=== PATIENT | male | born 1945 | race Two or more races ===

== ENCOUNTER 2016-04-19 19:04 | Inpatient (IN) | payer MEDICARE ==
[~2016-04-19] VITALS: Ht 170.2 cm; Wt 111.9 kg
[~2016-04-19 19:04] MED LIST: CHOL1TAB42 PO; DOCU100C8 PO; FURO40TA4 PO; LACT10SO PO; SPIR100T PO
[2016-04-19 20:09] LABS: Basophils # (auto) 0 uL; Basophils % (auto) 0.1 % (0.0-2.0); DEFINITIVE VIEW TRANSMISSION; Eosinophils # (auto) 0 uL; Eosinophils % (auto) 1.1 % (0.0-7.0); Hematocrit 25.3 % (41.0-53.0); Hemoglobin 8.3 g/dL (13.5-17.5); Lymphocytes # (auto) 0.3 uL; Lymphocytes % (auto) 7.1 % (10.0-50.0); Mean Corpuscular Hemoglobin 34.6 pg (28.0-32.0); Mean Corpuscular Hgb Conc. 32.7 g/dL (32.0-36.0); Mean Corpuscular Volume 105.7 fL (80.0-100.0); Mean Platelet Volume 8.1 fL (7.4-10.4); Monocytes # (auto) 0.4 uL; Monocytes % (auto) 10.1 % (0.0-12.0); Neutrophils # (auto) 3.3 uL; Neutrophils % (auto) 81.6 % (37.0-80.0); Platelet Count (auto) 50 10^3/uL (140-450)
[2016-04-19 20:19] LABS: Albumin 2.3 g/dL (3.4-5.0); BUN/Creatinine Ratio 28.5; Bilirubin, Total 1.4 mg/dL (0.2-1.0); Calcium 7.3 mg/dL (8.5-10.1); Magnesium 2.2 mg/dL (1.6-2.6); Potassium 5.1 mmol/L (3.5-5.1)
[2016-04-19 20:38] LABS: Red Cell Distribution Width 22.4 % (11.6-16.0)
[2016-04-19 21:03] LABS: Ovalocytes FEW; Platelet Estimate Decreased
[2016-04-19 21:04] LABS: Anisocytosis Moderate; Polychromasia Slight
[2016-04-19 21:05] LABS: Macrocytosis Moderate
[2016-04-19 21:39] LABS: B-Type Natriuretic Peptide 46.51 pg/mL (0-100)
[2016-04-20] MEDS ORDERED: FUROSEMIDE 40 MG/4 ML VIAL IV ONE (03:30)
[2016-04-20] MEDS ORDERED: MORPHINE SULF INJ 2 MG/ML SYRINGE 1ML IV PRN (03:30)
[2016-04-20] MEDS ORDERED: DOCUSATE SOD 100 MG CAP PO PRN (03:30)
[2016-04-20] MEDS ORDERED: ACETAMINOPHEN 325 MG TAB PO PRN (03:30)
[2016-04-20] MEDS ORDERED: ONDANSETRON HCL 4 MG/2 ML VIAL IV PRN (03:30)
[2016-04-20] MEDS ORDERED: TEMAZEPAM 15 MG CAP PO PRN (03:30)
[2016-04-20] MEDS ORDERED: NITROGLYCERIN 0.4 MG SL TAB SL PRN (03:30)
[2016-04-20 05:38] VITALS: BP 114/72
[2016-04-20 06:00] LABS: Urine Bilirubin Negative (Negative); Urine Blood Negative /uL (Negative); Urine Color Yellow (Yellow); Urine Glucose Normal (Normal); Urine Ketone Negative (Negative); Urine Nitrite Negative (Negative); Urine RBC <1 /hpf (0 - 3); Urine Squamous Epithelial Cell FEW /hpf (<5); Urine Urobilinogen Normal (Negative)
[2016-04-20 09:00] VITALS: BP 114/56
[2016-04-20] MEDS: FUROSEMIDE 40 MG TAB PO SCH (09:47)
[2016-04-20] MEDS: FAMOTIDINE 20 MG TAB PO SCH ×2 (09:47→21:22)
[2016-04-20] MEDS: LACTULOSE 20Gm/30ML SOLN PO SCH ×2 (09:47→21:22)
[2016-04-20] MEDS: SPIRONOLACTONE 25 MG TAB PO SCH (09:47)
[2016-04-20] MEDS ORDERED: ENOXAPARIN SOD 40 MG/0.4 ML SYRINGE SC SCH (10:00)
[2016-04-20] MEDS: cefTRIAXone 1GM/50ML D5W 50 ML IV SCH (12:54)
[2016-04-20 13:00] VITALS: BP 104/61
[2016-04-20 15:10] LABS: INR 1.21 (0.9-1.15); Prothrombin Time 12.5 sec (9.37-12.3)
[2016-04-20 17:00] VITALS: BP 111/59
[2016-04-20 21:44] VITALS: BP 127/72
[2016-04-21] VITALS (10 sets, daily range): BP systolic 99–113; BP diastolic 46–56
[2016-04-21 05:41] LABS: Basophils # (auto) 0 uL; Basophils % (auto) 0.2 % (0.0-2.0); DEFINITIVE VIEW TRANSMISSION; Eosinophils # (auto) 0.1 uL; Eosinophils % (auto) 2.4 % (0.0-7.0); Hematocrit 21.4 % (41.0-53.0); Lymphocytes # (auto) 0.5 uL; Lymphocytes % (auto) 20.1 % (10.0-50.0); Mean Corpuscular Hemoglobin 34.5 pg (28.0-32.0); Mean Corpuscular Hgb Conc. 32.8 g/dL (32.0-36.0); Mean Corpuscular Volume 105.1 fL (80.0-100.0); Monocytes # (auto) 0.4 uL; Monocytes % (auto) 14.2 % (0.0-12.0); Neutrophils # (auto) 1.6 uL; Neutrophils % (auto) 63.1 % (37.0-80.0); Platelet Count (auto) 48 10^3/uL (140-450); White Blood Cell 2.5 10^3/uL (4.4-10.8)
[2016-04-21 06:02] LABS: Potassium 4.7 mmol/L (3.5-5.1)
[2016-04-21 06:07] LABS: Albumin 1.9 g/dL (3.4-5.0); BUN/Creatinine Ratio 33.9; Calcium 7.1 mg/dL (8.5-10.1)
[2016-04-21 06:09] LABS: Total Protein 5.4 g/dL (6.4-8.2)
[2016-04-21 06:15] LABS: Red Cell Distribution Width 22.2 % (11.6-16.0)
[2016-04-21 06:56] LABS: Anisocytosis Moderate; Macrocytosis Slight; Platelet Estimate Decreased
[2016-04-21] MEDS: cefTRIAXone 1GM/50ML D5W 50 ML IV SCH (08:23)
[2016-04-21] MEDS ORDERED: NOREPINEPHRINE BITARTRATE 0 ML IV ONE (09:40)
[2016-04-21] MEDS: FUROSEMIDE 40 MG TAB PO SCH (10:00)
[2016-04-21] MEDS: SPIRONOLACTONE 25 MG TAB PO SCH (10:00)
[2016-04-21] MEDS: LACTULOSE 20Gm/30ML SOLN PO SCH ×2 (10:50→21:29)
[2016-04-21] MEDS: FAMOTIDINE 20 MG TAB PO SCH ×2 (10:50→21:29)
[2016-04-21 11:43] LABS: Hematocrit 19.8 % (41.0-53.0)
[2016-04-21 11:53] LABS: Hemoglobin 6.5 g/dL (13.5-17.5)
[2016-04-21] MEDS ORDERED: AZITHROMYCIN 500MG/D5W 250ML 250 ML IV SCH (13:30)
[2016-04-21 14:11] LABS: Temperature: 22.7 C (20.0-25.0)
[2016-04-21 14:27] LABS: Body Fluid Polymorphonuclear 37 %
[2016-04-22] VITALS (9 sets, daily range): BP systolic 93–112; BP diastolic 49–61
[2016-04-22] MEDS: LACTULOSE 20Gm/30ML SOLN PO SCH (09:40)
[2016-04-22] MEDS: FAMOTIDINE 20 MG TAB PO SCH (09:40)
[2016-04-22] MEDS: SPIRONOLACTONE 25 MG TAB PO SCH (09:41)
[2016-04-22] MEDS: FUROSEMIDE 40 MG TAB PO SCH (09:51)
[2016-04-22] MEDS ORDERED: diphenhdrAMINE HCL 25 MG CAP PO PRN (12:00)
[2016-04-22] MEDS ORDERED: PANTOPRAZOLE 40 MG TAB PO SCH (14:08)
[2016-04-22] MEDS ORDERED: OCTREOTIDE ACETATE 100 MCG in SODIUM CHL 0.9% 50 ML IV ONE (14:45)
[2016-04-22] MEDS ORDERED: LINEZOLID 600MG/300ML 300 ML IV SCH (15:00)
[2016-04-22 15:43] LABS: Basophils # (auto) 0 uL; Basophils % (auto) 0.6 % (0.0-2.0); DEFINITIVE VIEW TRANSMISSION; Eosinophils # (auto) 0.1 uL; Eosinophils % (auto) 4.4 % (0.0-7.0); Hematocrit 25.2 % (41.0-53.0); Hemoglobin 8.2 g/dL (13.5-17.5); Lymphocytes # (auto) 0.5 uL; Lymphocytes % (auto) 21.6 % (10.0-50.0); Mean Corpuscular Hemoglobin 32.1 pg (28.0-32.0); Mean Corpuscular Hgb Conc. 32.6 g/dL (32.0-36.0); Mean Corpuscular Volume 98.7 fL (80.0-100.0); Mean Platelet Volume 8.5 fL (7.4-10.4); Monocytes # (auto) 0.3 uL; Monocytes % (auto) 14.7 % (0.0-12.0); Neutrophils # (auto) 1.3 uL; Neutrophils % (auto) 58.7 % (37.0-80.0); Platelet Count (auto) 57 10^3/uL (140-450); SUSPECT VIEW TRANSMISSION; White Blood Cell 2.3 10^3/uL (4.4-10.8)
[2016-04-22 15:49] LABS: Red Cell Distribution Width 26.2 % (11.6-16.0)
[2016-04-22] MEDS: OCTREOTIDE ACETATE 500 MCG in SODIUM CHL 0.9% 99 ML IV SCH (15:53)
[2016-04-22 16:08] LABS: Platelet Estimate Decreased
[2016-04-22 16:09] LABS: Anisocytosis Moderate
[2016-04-22] MEDS: HYDROcodone-ACET 5/325MG TAB PO PRN (17:10)
[2016-04-22] MEDS ORDERED: DAPTOmycin 500 MG in SODIUM CHL 0.9% 50 ML IV SCH (18:00)
[2016-04-22] MEDS: PANTOPRAZOLE 40 MG TAB PO SCH (21:54)
[2016-04-23] VITALS (7 sets, daily range): BP systolic 91–119; BP diastolic 49–66
[2016-04-23] MEDS: OCTREOTIDE ACETATE 500 MCG in SODIUM CHL 0.9% 99 ML IV SCH (00:40)
[2016-04-23] MEDS ORDERED: fentaNYL CITRATE 100 MCG/2 ML VL ONE (08:25)
[2016-04-23] MEDS ORDERED: MIDAZOLAM HCL 5 MG/ML-1ML VIAL ONE (08:25)
[2016-04-23] MEDS ORDERED: SODIUM CHLORIDE LOCK 10 ML ONE (08:25)
[2016-04-23] MEDS ORDERED: LIDOCAINE VISCOUS 2% 15ML UD ONE (08:25)
[2016-04-23] MEDS ORDERED: diphenhdrAMINE HCL 50 MG/1 ML VL ONE (08:26)
[2016-04-23] MEDS ORDERED: DAPTOmycin 0 MG in SODIUM CHL 0.9% 50 ML IV SCH (10:00)
[2016-04-23] MEDS: LACTULOSE 20Gm/30ML SOLN PO SCH (10:00)
[2016-04-23] MEDS: SPIRONOLACTONE 25 MG TAB PO SCH (10:00)
[2016-04-23] MEDS: FUROSEMIDE 40 MG TAB PO SCH (10:00)
[2016-04-23] MEDS: PANTOPRAZOLE 40 MG TAB PO SCH ×2 (10:00→21:35)
[2016-04-23] MEDS: CEFTRIAXONE SODIUM 2 GM in D5W 5% 50 ML IV SCH (14:00)
[2016-04-24 05:00] VITALS: BP 98/42
[2016-04-24 06:03] LABS: Basophils # (auto) 0 uL; Basophils % (auto) 0.2 % (0.0-2.0); DEFINITIVE VIEW TRANSMISSION; Eosinophils # (auto) 0.1 uL; Eosinophils % (auto) 3.7 % (0.0-7.0); Hematocrit 23.9 % (41.0-53.0); Hemoglobin 7.8 g/dL (13.5-17.5); Lymphocytes # (auto) 0.5 uL; Lymphocytes % (auto) 23.8 % (10.0-50.0); Mean Corpuscular Hemoglobin 32.4 pg (28.0-32.0); Mean Corpuscular Hgb Conc. 32.7 g/dL (32.0-36.0); Mean Corpuscular Volume 99.2 fL (80.0-100.0); Mean Platelet Volume 7.9 fL (7.4-10.4); Monocytes # (auto) 0.2 uL; Monocytes % (auto) 12.3 % (0.0-12.0); Neutrophils # (auto) 1.1 uL; Platelet Count (auto) 59 10^3/uL (140-450); SUSPECT VIEW TRANSMISSION
[2016-04-24 06:05] LABS: Red Cell Distribution Width 25.6 % (11.6-16.0)
[2016-04-24 06:07] LABS: White Blood Cell 1.9 10^3/uL (4.4-10.8)
[2016-04-24 06:50] LABS: Anisocytosis Slight; Platelet Estimate Decreased
[2016-04-24 08:13] VITALS: BP 117/70
[2016-04-24] MEDS: SPIRONOLACTONE 25 MG TAB PO SCH (10:00)
[2016-04-24] MEDS: CEFTRIAXONE SODIUM 2 GM in D5W 5% 50 ML IV SCH (10:00)
[2016-04-24] MEDS: FUROSEMIDE 40 MG TAB PO SCH (10:00)
[2016-04-24] MEDS: LACTULOSE 20Gm/30ML SOLN PO SCH (10:18)
[2016-04-24] MEDS: PANTOPRAZOLE 40 MG TAB PO SCH ×2 (10:19→22:46)
[2016-04-24 13:10] VITALS: BP 101/58
[2016-04-24 16:24] VITALS: BP 104/49
[2016-04-24] MEDS: METOCLOPRAMIDE HCL 10 MG TAB PO SCH ×2 (17:26→22:46)
[2016-04-24 22:00] VITALS: BP 100/48
[2016-04-25 05:51] VITALS: BP 100/53
[2016-04-25 06:08] LABS: Basophils # (auto) 0 uL; Basophils % (auto) 0.2 % (0.0-2.0); DEFINITIVE VIEW TRANSMISSION; Eosinophils # (auto) 0.1 uL; Eosinophils % (auto) 3.8 % (0.0-7.0); Hematocrit 24.7 % (41.0-53.0); Hemoglobin 8.1 g/dL (13.5-17.5); Lymphocytes # (auto) 0.5 uL; Lymphocytes % (auto) 28.3 % (10.0-50.0); Mean Corpuscular Hemoglobin 32.4 pg (28.0-32.0); Mean Corpuscular Hgb Conc. 32.7 g/dL (32.0-36.0); Mean Platelet Volume 7.8 fL (7.4-10.4); Monocytes # (auto) 0.2 uL; Neutrophils # (auto) 0.9 uL; Neutrophils % (auto) 54.7 % (37.0-80.0); Platelet Count (auto) 57 10^3/uL (140-450); SUSPECT VIEW TRANSMISSION
[2016-04-25 06:21] LABS: Red Cell Distribution Width 24.7 % (11.6-16.0)
[2016-04-25 06:33] LABS: White Blood Cell 1.7 10^3/uL (4.4-10.8)
[2016-04-25] MEDS: METOCLOPRAMIDE HCL 10 MG TAB PO SCH ×4 (06:46→21:26)
[2016-04-25 07:44] LABS: Anisocytosis Slight; Platelet Estimate Decreased
[2016-04-25 07:45] LABS: Poikilocytosis 1
[2016-04-25 09:00] VITALS: BP 117/59
[2016-04-25] MEDS: LACTULOSE 20Gm/30ML SOLN PO SCH (10:02)
[2016-04-25] MEDS: PANTOPRAZOLE 40 MG TAB PO SCH ×2 (10:03→21:26)
[2016-04-25] MEDS: FUROSEMIDE 40 MG TAB PO SCH (10:03)
[2016-04-25] MEDS: SPIRONOLACTONE 25 MG TAB PO SCH (10:03)
[2016-04-25] MEDS: CEFTRIAXONE SODIUM 2 GM in D5W 5% 50 ML IV SCH (10:32)
[2016-04-25 13:00] VITALS: BP 107/63
[2016-04-25 14:04] LABS: INR 1.34 (0.9-1.15); Partial Thromboplastin Time 33.9 sec (22.64-33.71); Prothrombin Time 13.8 sec (9.37-12.3)
[2016-04-25 17:00] VITALS: BP 100/54
[2016-04-25 22:00] VITALS: BP 106/60
[2016-04-26 05:28] VITALS: BP 109/71
[2016-04-26] MEDS: METOCLOPRAMIDE HCL 10 MG TAB PO SCH ×4 (06:07→21:36)
[2016-04-26] MEDS: SPIRONOLACTONE 25 MG TAB PO SCH (08:48)
[2016-04-26] MEDS: LACTULOSE 20Gm/30ML SOLN PO SCH (08:48)
[2016-04-26] MEDS: CEFTRIAXONE SODIUM 2 GM in D5W 5% 50 ML IV SCH (08:51)
[2016-04-26] MEDS: FUROSEMIDE 40 MG TAB PO SCH (08:51)
[2016-04-26] MEDS: PANTOPRAZOLE 40 MG TAB PO SCH ×2 (08:51→21:36)
[2016-04-26 09:00] VITALS: BP 101/61
[2016-04-26] MEDS: HYDROcodone-ACET 5/325MG TAB PO PRN ×2 (11:12→21:35)
[2016-04-26 13:00] VITALS: BP 104/59
[2016-04-26 17:00] VITALS: BP 99/54
[2016-04-26 22:00] VITALS: BP 101/54
[2016-04-27] MEDS: HYDROcodone-ACET 5/325MG TAB PO PRN (05:11)
[2016-04-27 05:33] VITALS: BP 104/54
[2016-04-27] MEDS: METOCLOPRAMIDE HCL 10 MG TAB PO SCH ×4 (06:14→21:45)
[2016-04-27 09:00] VITALS: BP 136/54
[2016-04-27] MEDS: SPIRONOLACTONE 25 MG TAB PO SCH (10:00)
[2016-04-27] MEDS: CEFTRIAXONE SODIUM 2 GM in D5W 5% 50 ML IV SCH (10:18)
[2016-04-27] MEDS: LACTULOSE 20Gm/30ML SOLN PO SCH (10:18)
[2016-04-27] MEDS: PANTOPRAZOLE 40 MG TAB PO SCH ×2 (10:18→21:45)
[2016-04-27] MEDS: FUROSEMIDE 40 MG TAB PO SCH (10:18)
[2016-04-27 13:00] VITALS: BP 93/44
[2016-04-27 17:00] VITALS: BP 98/54
[2016-04-27 22:00] VITALS: BP 101/45
[2016-04-28] MEDS: HYDROcodone-ACET 5/325MG TAB PO PRN ×2 (04:11→19:25)
[2016-04-28 05:00] VITALS: BP 108/50
[2016-04-28] MEDS: METOCLOPRAMIDE HCL 10 MG TAB PO SCH ×4 (06:35→22:22)
[2016-04-28 08:49] VITALS: BP 103/56
[2016-04-28] MEDS: PANTOPRAZOLE 40 MG TAB PO SCH ×2 (09:43→22:22)
[2016-04-28] MEDS: CEFTRIAXONE SODIUM 2 GM in D5W 5% 50 ML IV SCH (09:43)
[2016-04-28] MEDS: LACTULOSE 20Gm/30ML SOLN PO SCH (09:48)
[2016-04-28] MEDS: SPIRONOLACTONE 25 MG TAB PO SCH (09:49)
[2016-04-28] MEDS: FUROSEMIDE 40 MG TAB PO SCH (09:49)
[2016-04-28 11:00] VITALS: BP 104/51
[2016-04-28 15:11] LABS: Basophils # (auto) 0 uL; Basophils % (auto) 0.4 % (0.0-2.0); DEFINITIVE VIEW TRANSMISSION; Eosinophils # (auto) 0.1 uL; Eosinophils % (auto) 3.4 % (0.0-7.0); Hematocrit 25.3 % (41.0-53.0); Hemoglobin 8.2 g/dL (13.5-17.5); Lymphocytes # (auto) 0.4 uL; Lymphocytes % (auto) 20.3 % (10.0-50.0); Mean Corpuscular Hemoglobin 32.2 pg (28.0-32.0); Mean Corpuscular Hgb Conc. 32.5 g/dL (32.0-36.0); Mean Platelet Volume 7.8 fL (7.4-10.4); Monocytes # (auto) 0.2 uL; Monocytes % (auto) 9.8 % (0.0-12.0); Neutrophils # (auto) 1.3 uL; Neutrophils % (auto) 66.1 % (37.0-80.0); Platelet Count (auto) 48 10^3/uL (140-450); SUSPECT VIEW TRANSMISSION
[2016-04-28 15:47] LABS: Red Cell Distribution Width 23.3 % (11.6-16.0)
[2016-04-28 16:33] LABS: Anisocytosis Slight; Platelet Estimate Decreased
[2016-04-28 16:39] VITALS: BP 92/47
[2016-04-28 22:00] VITALS: BP 95/55
[2016-04-29 05:00] VITALS: BP 94/40
[2016-04-29] MEDS: METOCLOPRAMIDE HCL 10 MG TAB PO SCH ×4 (06:20→21:59)
[2016-04-29] MEDS: HYDROcodone-ACET 5/325MG TAB PO PRN ×3 (06:34→20:47)
[2016-04-29 08:25] VITALS: BP 100/54
[2016-04-29] MEDS: CEFTRIAXONE SODIUM 2 GM in D5W 5% 50 ML IV SCH (09:31)
[2016-04-29] MEDS: PANTOPRAZOLE 40 MG TAB PO SCH ×2 (09:31→21:59)
[2016-04-29] MEDS: LACTULOSE 20Gm/30ML SOLN PO SCH (09:31)
[2016-04-29] MEDS: FUROSEMIDE 40 MG TAB PO SCH (09:32)
[2016-04-29] MEDS: SPIRONOLACTONE 25 MG TAB PO SCH (09:33)
[2016-04-29 14:01] VITALS: BP 93/46
[2016-04-29 17:13] VITALS: BP 94/49
[2016-04-29 22:00] VITALS: BP 92/52
[2016-04-30 05:00] VITALS: BP 91/54
[2016-04-30 05:55] LABS: Calcium 7.3 mg/dL (8.5-10.1); Potassium 4.4 mmol/L (3.5-5.1)
[2016-04-30 05:58] LABS: BUN/Creatinine Ratio 17.5
[2016-04-30] MEDS: HYDROcodone-ACET 5/325MG TAB PO PRN ×2 (05:59→14:30)
[2016-04-30] MEDS: METOCLOPRAMIDE HCL 10 MG TAB PO SCH ×3 (06:30→17:42)
[2016-04-30 07:57] VITALS: BP 90/49
[2016-04-30] MEDS: SPIRONOLACTONE 25 MG TAB PO SCH (08:04)
[2016-04-30] MEDS: CEFTRIAXONE SODIUM 2 GM in D5W 5% 50 ML IV SCH (09:48)
[2016-04-30] MEDS: LACTULOSE 20Gm/30ML SOLN PO SCH (09:48)
[2016-04-30] MEDS: PANTOPRAZOLE 40 MG TAB PO SCH (09:49)
[2016-04-30] MEDS: FUROSEMIDE 40 MG TAB PO SCH (09:49)
[2016-04-30] MEDS ORDERED: MORPHINE SULF INJ 2 MG/ML SYRINGE 1ML IV ONE (14:45)
[2016-04-30 17:20] VITALS: BP 90/50
[2016-04-30 17:23] VITALS: BP 90/49
== END 2016-04-30 18:10 | disposition home or self-care (01) | DRG 441 ==
LOC: ER 19:08 → TELE 19:09 → TELE-WESTW 04-20 04:30 → DOU IN ICU 04-21 13:29 → TELE-WESTW 04-21 14:02
PROVIDERS: ADMIT Nurse Practitioner; ATTEND Internal Medicine Pulmonary Disease
PROC: 30233R1 Transfusion of Nonautologous Platelets into Peripheral Vein, Percutaneous Approach (ICD-10-PCS; 2016-04-23)
PROC: 30233N1 Transfusion of Nonautologous Red Blood Cells into Peripheral Vein, Percutaneous Approach (ICD-10-PCS; 2016-04-23)
PROC: 0W9930Z Drainage of Right Pleural Cavity with Drainage Device, Percutaneous Approach (ICD-10-PCS; 2016-04-23)
PROC: 0DJ08ZZ Inspection of Upper Intestinal Tract, Via Natural or Artificial Opening Endoscopic (ICD-10-PCS; principal; 2016-04-23 10:40)
DX: K76.6 Portal hypertension (principal); J86.9 Pyothorax without fistula; E43 Unspecified severe protein-calorie malnutrition; J90 Pleural effusion, not elsewhere classified; E87.1 Hypo-osmolality and hyponatremia; K70.31 Alcoholic cirrhosis of liver with ascites; D63.8 Anemia in other chronic diseases classified elsewhere; F17.210 Nicotine dependence, cigarettes, uncomplicated; K29.70 Gastritis, unspecified, without bleeding; K31.89 Other diseases of stomach and duodenum; B95.4 Other streptococcus as the cause of diseases classified elsewhere; Z98.890 Other specified postprocedural states; Z87.19 Personal history of other diseases of the digestive system; Z68.38 Body mass index [BMI] 38.0-38.9, adult
CPT/HCPCS: 36415; 71010; 71020; 74022; 76604; 76942; 80048; 80053; 81001; 82140; 82270; 82607; 82746; 82945; 83605; 83615; 83735; 83880; 83986; 84157; 84484; 85014; 85018; 85025; 85610; 85730; 86850; 86900; 86901; 86920; 87040; 87070; 87077; 87081; 87186; 87205; 88341; 89051; 93005; 94761; 96374; J0696; J2250; J3490; J7060

== ENCOUNTER 2016-05-01 00:57 | Emergency (ER) | payer MEDICARE ==
[~2016-05-01] VITALS: Ht 172.7 cm; Wt 81.6 kg
[2016-05-01] MEDS ORDERED: IOHEXOL 350 MG/ML 100ML IJ ONE ×2 (01:16→01:30)
[2016-05-01 02:34] LABS: Basophils # (auto) 0 uL; DEFINITIVE VIEW TRANSMISSION; Eosinophils # (auto) 0 uL; Eosinophils % (auto) 0.8 % (0.0-7.0); Hematocrit 24.3 % (41.0-53.0); Lymphocytes # (auto) 0.2 uL; Lymphocytes % (auto) 10.1 % (10.0-50.0); Mean Corpuscular Hemoglobin 31.9 pg (28.0-32.0); Mean Corpuscular Hgb Conc. 32.6 g/dL (32.0-36.0); Mean Corpuscular Volume 97.8 fL (80.0-100.0); Mean Platelet Volume 8.3 fL (7.4-10.4); Monocytes # (auto) 0.2 uL; Monocytes % (auto) 7.9 % (0.0-12.0); Neutrophils # (auto) 1.6 uL; Neutrophils % (auto) 81.2 % (37.0-80.0); Platelet Count (auto) 40 10^3/uL (140-450)
[2016-05-01 02:39] LABS: Red Cell Distribution Width 22.3 % (11.6-16.0)
[2016-05-01 02:43] LABS: Albumin 1.8 g/dL (3.4-5.0); BUN/Creatinine Ratio 16.3; Calcium 7.1 mg/dL (8.5-10.1); Potassium 3.9 mmol/L (3.5-5.1)
[2016-05-01 02:45] LABS: Bilirubin, Total 1.6 mg/dL (0.2-1.0); Total Protein 5.4 g/dL (6.4-8.2)
[2016-05-01 02:56] LABS: Ovalocytes FEW; Platelet Estimate Decreased
[2016-05-01 02:57] LABS: Anisocytosis Slight
[2016-05-01] MEDS ORDERED: LIDOCAINE VISCOUS 2% 15ML UD PO ONE (03:15)
[2016-05-01] MEDS ORDERED: traMADol HCL 50 MG TAB PO ONE (03:15)
[2016-05-01] MEDS ORDERED: FAMOTIDINE 20 MG TAB PO ONE (03:15)
[2016-05-01] MEDS ORDERED: ALUM & MAG HYDROX-SIMETH LIQ(MAALOX) 30 ML PO ONE (03:15)
[2016-05-01 04:23] VITALS: BP 93/43
== END 2016-05-01 05:41 | disposition home or self-care (01) ==
LOC: ER 01:21
DX: K29.70 Gastritis, unspecified, without bleeding (principal); K74.60 Unspecified cirrhosis of liver; F17.210 Nicotine dependence, cigarettes, uncomplicated; Z79.899 Other long term (current) drug therapy
CPT/HCPCS: 36415; 74177; 80053; 83690; 83735; 84484; 85025; 93005; 99285; Q9967

== ENCOUNTER 2016-05-06 10:14 | Inpatient (IN) | payer MEDICARE ==
[~2016-05-06] VITALS: Ht 172.7 cm; Wt 121.9 kg
[2016-05-06 10:48] LABS: Basophils # (auto) 0 uL; Basophils % (auto) 0.2 % (0.0-2.0); DEFINITIVE VIEW TRANSMISSION; Eosinophils # (auto) 0.1 uL; Eosinophils % (auto) 3.4 % (0.0-7.0); Hematocrit 24.4 % (41.0-53.0); Hemoglobin 7.9 g/dL (13.5-17.5); Lymphocytes # (auto) 0.5 uL; Lymphocytes % (auto) 13.9 % (10.0-50.0); Mean Corpuscular Hgb Conc. 32.4 g/dL (32.0-36.0); Mean Corpuscular Volume 95.5 fL (80.0-100.0); Mean Platelet Volume 7.9 fL (7.4-10.4); Monocytes # (auto) 0.4 uL; Monocytes % (auto) 10.9 % (0.0-12.0); Neutrophils # (auto) 2.3 uL; Neutrophils % (auto) 71.6 % (37.0-80.0); Platelet Count (auto) 117 10^3/uL (140-450); White Blood Cell 3.3 10^3/uL (4.4-10.8)
[2016-05-06 11:07] LABS: BUN/Creatinine Ratio 24.3; Bilirubin, Total 7.1 mg/dL (0.2-1.0); Calcium 7.6 mg/dL (8.5-10.1); Potassium 4.3 mmol/L (3.5-5.1); Total Protein 5.8 g/dL (6.4-8.2)
[2016-05-06 11:44] LABS: Anisocytosis Slight; Hypochromia Slight
[2016-05-06] MEDS ORDERED: NITROGLYCERIN 0.4 MG SL TAB SL PRN (11:45)
[2016-05-06] MEDS ORDERED: LORazepam 0.5 MG TAB PO PRN (11:45)
[2016-05-06] MEDS ORDERED: PANTOPRAZOLE SODIUM 40 MG/10 ML VIAL IV ONE (11:45)
[2016-05-06] MEDS ORDERED: MORPHINE SULF INJ 2 MG/ML SYRINGE 1ML IV PRN ×2 (11:45)
[2016-05-06] MEDS ORDERED: PROMETHAZINE HCL 25 MG/ML 1ML IV PRN (11:45)
[2016-05-06 12:00] LABS: Platelet Estimate Decreased
[2016-05-06 12:10] LABS: INR 1.18 (0.9-1.15); Partial Thromboplastin Time 27.5 sec (22.64-33.71); Prothrombin Time 12.2 sec (9.37-12.3)
[2016-05-06 12:22] LABS: B-Type Natriuretic Peptide 45.01 pg/mL (0-100)
[2016-05-06 12:51] LABS: Temperature: 22.5 C (20.0-25.0)
[2016-05-06 12:52] LABS: Hematocrit 23.8 % (41.0-53.0); Hemoglobin 7.8 g/dL (13.5-17.5)
[2016-05-06] MEDS ORDERED: GOLYTELY 4L KIT PO ONE (13:45)
[2016-05-06] MEDS ORDERED: SODIUM CHLORIDE 0.9% 500 ML IV ONE (15:15)
[2016-05-06 15:50] VITALS: BP 104/66
[2016-05-06 16:00] VITALS: BP 119/69
[2016-05-06] MEDS ORDERED: DICY20TA66 PO (16:16)
[2016-05-06] MEDS ORDERED: FAM20T PO (16:16)
[2016-05-06 18:17] LABS: Hematocrit 24.4 % (41.0-53.0); Hemoglobin 7.9 g/dL (13.5-17.5)
[2016-05-06 19:57] VITALS: BP 112/65
[2016-05-06 21:07] LABS: Urine Blood Negative /uL (Negative); Urine Color Yellow (Yellow); Urine Glucose Normal (Normal); Urine Granular Cast FEW /lpf (0); Urine Hyaline Cast FEW /lpf (0 - 2); Urine Ketone Negative (Negative); Urine Nitrite Negative (Negative); Urine RBC 1 /hpf (0 - 3); Urine Squamous Epithelial Cell FEW /hpf (<5); Urine Urobilinogen Normal (Negative)
[2016-05-06 21:23] LABS: Urine Bilirubin 2+ (Negative)
[2016-05-06] MEDS: D5W/SOD CHL 0.45% 1,000 ML IV SCH (23:30)
[2016-05-06 23:55] VITALS: BP 96/54
[2016-05-07 01:20] LABS: Hematocrit 23.3 % (41.0-53.0); Hemoglobin 7.5 g/dL (13.5-17.5)
[2016-05-07 04:00] VITALS: BP 117/59
[2016-05-07 06:06] LABS: Basophils # (auto) 0 uL; Basophils % (auto) 0.4 % (0.0-2.0); DEFINITIVE VIEW TRANSMISSION; Eosinophils # (auto) 0.1 uL; Eosinophils % (auto) 2.9 % (0.0-7.0); Hematocrit 22.6 % (41.0-53.0); Hemoglobin 7.3 g/dL (13.5-17.5); Lymphocytes # (auto) 0.5 uL; Lymphocytes % (auto) 16.8 % (10.0-50.0); Mean Corpuscular Hemoglobin 30.7 pg (28.0-32.0); Mean Corpuscular Hgb Conc. 32.3 g/dL (32.0-36.0); Mean Corpuscular Volume 95.2 fL (80.0-100.0); Mean Platelet Volume 8.2 fL (7.4-10.4); Monocytes # (auto) 0.4 uL; Monocytes % (auto) 14.3 % (0.0-12.0); Neutrophils # (auto) 1.9 uL; Neutrophils % (auto) 65.6 % (37.0-80.0); Platelet Count (auto) 100 10^3/uL (140-450)
[2016-05-07 06:19] LABS: Albumin 1.8 g/dL (3.4-5.0); Calcium 7.2 mg/dL (8.5-10.1); Potassium 4.1 mmol/L (3.5-5.1)
[2016-05-07 06:21] LABS: Bilirubin, Total 7.1 mg/dL (0.2-1.0); Total Protein 5.5 g/dL (6.4-8.2)
[2016-05-07 06:29] LABS: Red Cell Distribution Width 22.9 % (11.6-16.0)
[2016-05-07 07:22] LABS: Anisocytosis Slight; Hypochromia Moderate; Platelet Estimate Decreased
[2016-05-07 08:00] VITALS: BP 100/59
[2016-05-07] MEDS ORDERED: NALOXONE HCL 0.4 MG/ML VIAL ONE (08:00)
[2016-05-07] MEDS ORDERED: SODIUM CHLORIDE LOCK 10 ML ONE (08:00)
[2016-05-07] MEDS ORDERED: FLUMAZENIL 0.1 MG/ML INJ 10ML MDV IV ONE (08:00)
[2016-05-07] MEDS ORDERED: diphenhdrAMINE HCL 50 MG/1 ML VL ONE (08:01)
[2016-05-07] MEDS: MIDAZOLAM HCL 5 MG/ML-1ML VIAL ONE ×2 (08:47→08:53)
[2016-05-07] MEDS: fentaNYL CITRATE 100 MCG/2 ML VL ONE ×2 (08:47→08:53)
[2016-05-07] MEDS: PANTOPRAZOLE 40 MG TAB PO SCH ×6 (10:11→10:22)
[2016-05-07 12:00] VITALS: BP 99/53
[2016-05-07] MEDS: D5W/SOD CHL 0.45% 1,000 ML IV SCH (13:20)
[2016-05-07 16:00] VITALS: BP 96/48
[2016-05-07] MEDS ORDERED: SPIRONOLACTONE 25 MG TAB PO ONE (16:45)
[2016-05-07] MEDS ORDERED: FUROSEMIDE 20 MG TAB PO ONE (16:45)
[2016-05-07 20:19] VITALS: BP 103/51
[2016-05-08] VITALS (10 sets, daily range): BP systolic 79–102; BP diastolic 5–52
[2016-05-08] MEDS: D5W/SOD CHL 0.45% 1,000 ML IV SCH ×2 (02:29→10:00)
[2016-05-08] MEDS: SPIRONOLACTONE 25 MG TAB PO SCH (09:59)
[2016-05-08] MEDS: FUROSEMIDE 20 MG TAB PO SCH (09:59)
[2016-05-08] MEDS: PANTOPRAZOLE 40 MG TAB PO SCH (10:00)
[2016-05-08] MEDS ORDERED: diphenhdrAMINE HCL 25 MG CAP PO PRN (10:45)
[2016-05-09] VITALS (12 sets, daily range): BP systolic 74–104; BP diastolic 36–62
[2016-05-09] MEDS ORDERED: SODIUM CHLORIDE 0.9% 1,000 ML IV ONE (00:15)
[2016-05-09 05:46] LABS: Basophils # (auto) 0 uL; Basophils % (auto) 0.3 % (0.0-2.0); DEFINITIVE VIEW TRANSMISSION; Eosinophils # (auto) 0.1 uL; Eosinophils % (auto) 2.7 % (0.0-7.0); Hematocrit 20.6 % (41.0-53.0); Lymphocytes # (auto) 0.5 uL; Lymphocytes % (auto) 18.6 % (10.0-50.0); Mean Corpuscular Hemoglobin 31.1 pg (28.0-32.0); Mean Corpuscular Hgb Conc. 32.8 g/dL (32.0-36.0); Mean Platelet Volume 7.8 fL (7.4-10.4); Monocytes # (auto) 0.4 uL; Monocytes % (auto) 14.9 % (0.0-12.0); Neutrophils # (auto) 1.6 uL; Neutrophils % (auto) 63.5 % (37.0-80.0); Platelet Count (auto) 87 10^3/uL (140-450); White Blood Cell 2.6 10^3/uL (4.4-10.8)
[2016-05-09 06:01] LABS: Calcium 7.3 mg/dL (8.5-10.1); Hemoglobin 6.8 g/dL (13.5-17.5); Red Cell Distribution Width 23.8 % (11.6-16.0)
[2016-05-09 06:05] LABS: BUN/Creatinine Ratio 24.6
[2016-05-09 07:24] LABS: Platelet Estimate Decreased
[2016-05-09 07:25] LABS: Anisocytosis Slight; Hypochromia Slight; Ovalocytes FEW
[2016-05-09] MEDS: FUROSEMIDE 20 MG TAB PO SCH (10:00)
[2016-05-09] MEDS: SPIRONOLACTONE 25 MG TAB PO SCH (10:50)
[2016-05-09] MEDS: PANTOPRAZOLE 40 MG TAB PO SCH (10:50)
[2016-05-10] MEDS: TEMAZEPAM 15 MG CAP PO PRN (00:18)
[2016-05-10 05:00] VITALS: BP 96/58
[2016-05-10 05:16] LABS: Basophils # (auto) 0 uL; Basophils % (auto) 0.3 % (0.0-2.0); DEFINITIVE VIEW TRANSMISSION; Eosinophils # (auto) 0.1 uL; Eosinophils % (auto) 3.4 % (0.0-7.0); Hematocrit 28.2 % (41.0-53.0); Hemoglobin 9.4 g/dL (13.5-17.5); Lymphocytes # (auto) 0.9 uL; Lymphocytes % (auto) 21.6 % (10.0-50.0); Mean Corpuscular Hemoglobin 30.6 pg (28.0-32.0); Mean Corpuscular Hgb Conc. 33.2 g/dL (32.0-36.0); Mean Corpuscular Volume 92.4 fL (80.0-100.0); Mean Platelet Volume 7.9 fL (7.4-10.4); Monocytes # (auto) 0.5 uL; Monocytes % (auto) 12.3 % (0.0-12.0); Neutrophils # (auto) 2.5 uL; Neutrophils % (auto) 62.4 % (37.0-80.0); Platelet Count (auto) 122 10^3/uL (140-450)
[2016-05-10 05:42] LABS: Albumin 1.8 g/dL (3.4-5.0); BUN/Creatinine Ratio 25.7; Bilirubin, Total 11.2 mg/dL (0.2-1.0); Calcium 7.9 mg/dL (8.5-10.1); Potassium 4.9 mmol/L (3.5-5.1); Total Protein 5.7 g/dL (6.4-8.2)
[2016-05-10 05:53] LABS: Red Cell Distribution Width 21.3 % (11.6-16.0)
[2016-05-10 07:56] LABS: Platelet Estimate Decreased
[2016-05-10 07:58] LABS: Anisocytosis Slight; Hypochromia Slight
[2016-05-10 08:00] VITALS: BP 100/65
[2016-05-10] MEDS: FUROSEMIDE 20 MG TAB PO SCH (10:00)
[2016-05-10] MEDS: SPIRONOLACTONE 25 MG TAB PO SCH (10:18)
[2016-05-10] MEDS: PANTOPRAZOLE 40 MG TAB PO SCH (10:19)
[2016-05-10 12:00] VITALS: BP 94/48
[2016-05-10 16:00] VITALS: BP 96/57
[2016-05-10 21:30] VITALS: BP 83/46
[2016-05-10 23:45] VITALS: BP 100/50
[2016-05-11 05:00] VITALS: BP 93/45
[2016-05-11 08:38] VITALS: BP 91/45
[2016-05-11] MEDS: FUROSEMIDE 20 MG TAB PO SCH (10:00)
[2016-05-11] MEDS: SPIRONOLACTONE 25 MG TAB PO SCH (10:00)
[2016-05-11] MEDS ORDERED: fentaNYL CITRATE 100 MCG/2 ML VL ONE (11:14)
[2016-05-11] MEDS ORDERED: LIDOCAINE VISCOUS 2% 15ML UD ONE (11:14)
[2016-05-11] MEDS ORDERED: diphenhdrAMINE HCL 50 MG/1 ML VL ONE (11:14)
[2016-05-11] MEDS ORDERED: MIDAZOLAM HCL 5 MG/ML-1ML VIAL ONE (11:14)
[2016-05-11] MEDS ORDERED: SODIUM CHLORIDE LOCK 10 ML ONE (11:14)
[2016-05-11] MEDS ORDERED: NALOXONE HCL 0.4 MG/ML VIAL ONE (11:15)
[2016-05-11] MEDS ORDERED: FLUMAZENIL 0.1 MG/ML INJ 10ML MDV IV ONE (11:15)
[2016-05-11 13:01] VITALS: BP 91/43
[2016-05-11 17:06] VITALS: BP 94/42
[2016-05-11] MEDS: PANTOPRAZOLE 40 MG TAB PO SCH (21:02)
[2016-05-11] MEDS: TEMAZEPAM 15 MG CAP PO PRN (21:02)
[2016-05-11 22:00] VITALS: BP 86/41
[2016-05-12 05:30] VITALS: BP 100/44
[2016-05-12 06:47] LABS: BUN/Creatinine Ratio 22.5; Calcium 7.6 mg/dL (8.5-10.1); Potassium 5.2 mmol/L (3.5-5.1)
[2016-05-12 08:21] LABS: Basophils # (auto) 0 uL; Basophils % (auto) 0.2 % (0.0-2.0); DEFINITIVE VIEW TRANSMISSION; Eosinophils # (auto) 0.1 uL; Eosinophils % (auto) 3.2 % (0.0-7.0); Hematocrit 27.7 % (41.0-53.0); Hemoglobin 9.1 g/dL (13.5-17.5); Lymphocytes # (auto) 0.6 uL; Lymphocytes % (auto) 14.4 % (10.0-50.0); Mean Corpuscular Hemoglobin 30.9 pg (28.0-32.0); Mean Corpuscular Hgb Conc. 33.1 g/dL (32.0-36.0); Mean Corpuscular Volume 93.5 fL (80.0-100.0); Mean Platelet Volume 8.6 fL (7.4-10.4); Monocytes # (auto) 0.5 uL; Monocytes % (auto) 11.4 % (0.0-12.0); Neutrophils # (auto) 3.1 uL; Neutrophils % (auto) 70.8 % (37.0-80.0); Platelet Count (auto) 111 10^3/uL (140-450); Red Cell Distribution Width 21.3 % (11.6-16.0); White Blood Cell 4.3 10^3/uL (4.4-10.8)
[2016-05-12 09:24] VITALS: BP 99/56
[2016-05-12] MEDS: SPIRONOLACTONE 25 MG TAB PO SCH (09:46)
[2016-05-12] MEDS: PANTOPRAZOLE 40 MG TAB PO SCH ×2 (09:46→22:20)
[2016-05-12] MEDS: FUROSEMIDE 20 MG TAB PO SCH (09:46)
[2016-05-12 12:10] VITALS: BP 81/46
[2016-05-12 14:37] LABS: Anisocytosis Moderate; Platelet Estimate Decreased
[2016-05-12 14:38] LABS: Burr Cells FEW; Ovalocytes FEW; Polychromasia Slight
[2016-05-12 17:28] VITALS: BP 89/50
[2016-05-12 20:43] VITALS: BP 90/51
[2016-05-12] MEDS: TEMAZEPAM 15 MG CAP PO PRN (22:20)
[2016-05-13 01:31] VITALS: BP 90/51
[2016-05-13] MEDS ORDERED: SPIRONOLACTONE 25 MG TAB PO SCH (10:00)
== END 2016-05-13 02:45 | disposition short-term general hospital (02) | DRG 441 ==
LOC: ER 10:24 → TELE 10:25 → DOU IN ICU 15:00 → WEST WING 05-08 12:12
PROVIDERS: ADMIT Internal Medicine; ATTEND Internal Medicine Pulmonary Disease
PROC: 0DJD8ZZ Inspection of Lower Intestinal Tract, Via Natural or Artificial Opening Endoscopic (ICD-10-PCS; 2016-05-07)
PROC: 0W993ZZ Drainage of Right Pleural Cavity, Percutaneous Approach (ICD-10-PCS; principal; 2016-05-07 08:36)
PROC: 30233N1 Transfusion of Nonautologous Red Blood Cells into Peripheral Vein, Percutaneous Approach (ICD-10-PCS; 2016-05-09)
PROC: 0DJ08ZZ Inspection of Upper Intestinal Tract, Via Natural or Artificial Opening Endoscopic (ICD-10-PCS; 2016-05-11)
DX: K76.6 Portal hypertension (principal); K76.7 Hepatorenal syndrome; N17.0 Acute kidney failure with tubular necrosis; D61.818 Other pancytopenia; J90 Pleural effusion, not elsewhere classified; K92.1 Melena; N28.0 Ischemia and infarction of kidney; D68.9 Coagulation defect, unspecified; I85.00 Esophageal varices without bleeding; D63.8 Anemia in other chronic diseases classified elsewhere; E83.51 Hypocalcemia; F17.210 Nicotine dependence, cigarettes, uncomplicated; K70.31 Alcoholic cirrhosis of liver with ascites; K31.89 Other diseases of stomach and duodenum; K29.70 Gastritis, unspecified, without bleeding; E87.5 Hyperkalemia; K64.8 Other hemorrhoids; K72.90 Hepatic failure, unspecified without coma; I12.9 Hypertensive chronic kidney disease with stage 1 through stage 4 chronic kidney disease, or unspecified chronic kidney disease; I95.9 Hypotension, unspecified; N18.3 Chronic kidney disease, stage 3 (moderate); Z98.890 Other specified postprocedural states
CPT/HCPCS: 36415; 43235; 45378; 71010; 71250; 74176; 76604; 76700; 76775; 76942; 80048; 80053; 81001; 82140; 82270; 82378; 82550; 82570; 83880; 84300; 84443; 84484; 85014; 85018; 85025; 85045; 85049; 85610; 85730; 86141; 86850; 86900; 86901; 86920; 87040; 87081; 93005; C9113; J2250

== ENCOUNTER 2016-05-30 13:07 | Inpatient (IN) | payer MEDICARE ==
[~2016-05-30] VITALS: Ht 172.7 cm; Wt 108.8 kg
[2016-05-30] VITALS (13 sets, daily range): BP systolic 87–128; BP diastolic 45–63
[~2016-05-30 13:07] MED LIST changes: +DICY20TA66 PO; +FAM20T PO
[2016-05-30] MEDS ORDERED: ACCU-CHEK COMFORT CURVE STRIP VI ONE (14:15)
[2016-05-30 15:15] LABS: Albumin 2.4 g/dL (3.4-5.0); BUN/Creatinine Ratio 30.3; Calcium 7.2 mg/dL (8.5-10.1); Potassium 4.4 mmol/L (3.5-5.1)
[2016-05-30 15:18] LABS: Bilirubin, Total 12.7 mg/dL (0.2-1.0); Total Protein 5.3 g/dL (6.4-8.2)
[2016-05-30 15:21] LABS: Basophils # (auto) 0 uL; Basophils % (auto) 0.2 % (0.0-2.0); DEFINITIVE VIEW TRANSMISSION; Eosinophils # (auto) 0 uL; Eosinophils % (auto) 1.4 % (0.0-7.0); Hematocrit 16.6 % (41.0-53.0); Lymphocytes # (auto) 0.4 uL; Lymphocytes % (auto) 12.3 % (10.0-50.0); Mean Corpuscular Hgb Conc. 31.9 g/dL (32.0-36.0); Mean Corpuscular Volume 97.1 fL (80.0-100.0); Mean Platelet Volume 8.9 fL (7.4-10.4); Monocytes # (auto) 0.4 uL; Monocytes % (auto) 14.8 % (0.0-12.0); Neutrophils # (auto) 2.1 uL; Neutrophils % (auto) 71.3 % (37.0-80.0); Platelet Count (auto) 47 10^3/uL (140-450); SUSPECT VIEW TRANSMISSION; White Blood Cell 2.9 10^3/uL (4.4-10.8)
[2016-05-30 15:31] LABS: Red Cell Distribution Width 27.1 % (11.6-16.0)
[2016-05-30 15:33] LABS: Hemoglobin 5.3 g/dL (13.5-17.5); Partial Thromboplastin Time 38.1 sec (22.64-33.71)
[2016-05-30 15:53] LABS: INR 1.57 (0.9-1.15); Prothrombin Time 16.2 sec (9.37-12.3)
[2016-05-30 16:38] LABS: Burr Cells FEW; Ovalocytes FEW; Schistocytes FEW
[2016-05-30 16:39] LABS: Polychromasia Slight; Tear Drop Cells FEW
[2016-05-30 16:40] LABS: Anisocytosis Moderate; Platelet Estimate Decreased
[2016-05-30] MEDS ORDERED: TEMAZEPAM 15 MG CAP PO PRN (17:45)
[2016-05-30] MEDS ORDERED: SPIRONOLACTONE 25 MG TAB PO ONE (17:45)
[2016-05-30] MEDS ORDERED: ACETAMINOPHEN 325 MG TAB PO PRN (17:45)
[2016-05-30] MEDS ORDERED: NITROGLYCERIN 0.4 MG SL TAB SL PRN (17:45)
[2016-05-30] MEDS ORDERED: HYDROcodone-ACET 5/325MG TAB PO PRN (17:45)
[2016-05-30] MEDS ORDERED: DOCUSATE SOD 100 MG CAP PO PRN (17:45)
[2016-05-30] MEDS ORDERED: MORPHINE SULF INJ 2 MG/ML SYRINGE 1ML IV PRN ×2 (17:45)
[2016-05-30] MEDS ORDERED: PANTOPRAZOLE 40 MG TAB PO ONE (17:45)
[2016-05-30] MEDS ORDERED: FUROSEMIDE 20 MG TAB PO ONE (17:45)
[2016-05-30] MEDS ORDERED: CIPROFLOXACIN HCL 500 MG TAB PO ONE (17:45)
[2016-05-30] MEDS ORDERED: ONDANSETRON HCL 4 MG/2 ML VIAL IV PRN (17:45)
[2016-05-30] MEDS: MULTIPLE VITAMIN TAB PO SCH (18:36)
[2016-05-30] MEDS: MIDODRINE HCL 10 MG TAB PO SCH (18:36)
[2016-05-30] MEDS: SODIUM CHLORIDE 0.9% 1,000 ML IV SCH (19:45)
[2016-05-30] MEDS: LACTULOSE 20Gm/30ML SOLN PO SCH (21:32)
[2016-05-30] MEDS ORDERED: FAMOTIDINE 20 MG TAB PO SCH (22:00)
[2016-05-30] MEDS ORDERED: RIFAXIMIN 550 MG TAB PO SCH (22:00)
[2016-05-30] MEDS ORDERED: CIPR-173 PO (23:33)
[2016-05-30] MEDS ORDERED: PANT1INJ3 PO (23:33)
[2016-05-30] MEDS ORDERED: RIFA550T PO (23:33)
[2016-05-30] MEDS ORDERED: MID10T PO (23:35)
[2016-05-31] VITALS (15 sets, daily range): BP systolic 84–118; BP diastolic 33–65
[2016-05-31 01:02] LABS: Urine RBC None Seen /hpf (0 - 3)
[2016-05-31 01:13] LABS: Urine Blood Negative /uL (Negative); Urine Color Yellow (Yellow); Urine Glucose Normal (Normal); Urine Ketone Negative (Negative); Urine Nitrite Negative (Negative); Urine Squamous Epithelial Cell FEW /hpf (<5); Urine Urobilinogen Normal (Negative); Urine pH 5.5 (5.0-8.0)
[2016-05-31 01:25] LABS: Urine Bilirubin POSITIVE (Negative)
[2016-05-31] MEDS: LACTULOSE 20Gm/30ML SOLN PO SCH ×2 (05:56→13:47)
[2016-05-31] MEDS: MIDODRINE HCL 10 MG TAB PO SCH ×3 (06:02→16:42)
[2016-05-31 06:10] LABS: Basophils # (auto) 0 uL; Basophils % (auto) 0.1 % (0.0-2.0); DEFINITIVE VIEW TRANSMISSION; Eosinophils # (auto) 0 uL; Eosinophils % (auto) 1.7 % (0.0-7.0); Hematocrit 21.8 % (41.0-53.0); Lymphocytes # (auto) 0.4 uL; Lymphocytes % (auto) 17.7 % (10.0-50.0); Mean Corpuscular Hgb Conc. 32.3 g/dL (32.0-36.0); Mean Corpuscular Volume 89.9 fL (80.0-100.0); Mean Platelet Volume 8.7 fL (7.4-10.4); Monocytes # (auto) 0.3 uL; Monocytes % (auto) 12.1 % (0.0-12.0); Neutrophils # (auto) 1.7 uL; Neutrophils % (auto) 68.4 % (37.0-80.0); Platelet Count (auto) 55 10^3/uL (140-450); SUSPECT VIEW TRANSMISSION; White Blood Cell 2.5 10^3/uL (4.4-10.8)
[2016-05-31 06:19] LABS: Red Cell Distribution Width 26.4 % (11.6-16.0)
[2016-05-31 06:42] LABS: Albumin 2.4 g/dL (3.4-5.0); Calcium 7.7 mg/dL (8.5-10.1)
[2016-05-31 06:52] LABS: Bilirubin, Total 13.8 mg/dL (0.2-1.0); Total Protein 5.2 g/dL (6.4-8.2)
[2016-05-31] MEDS: BOOST PLUS 8 ounce PO SCH ×3 (08:24→18:41)
[2016-05-31] MEDS ORDERED: CIPROFLOXACIN HCL 500 MG TAB PO SCH (10:00)
[2016-05-31] MEDS ORDERED: PANTOPRAZOLE 40 MG TAB PO SCH (10:00)
[2016-05-31] MEDS ORDERED: FUROSEMIDE 20 MG TAB PO SCH (10:00)
[2016-05-31] MEDS ORDERED: SPIRONOLACTONE 25 MG TAB PO SCH (10:00)
[2016-05-31] MEDS: MULTIPLE VITAMIN TAB PO SCH (10:03)
[2016-05-31] MEDS ORDERED: RIFAXIMIN 550 MG TAB PO ONE (12:00)
[2016-05-31 16:43] LABS: Hematocrit 25.7 % (41.0-53.0); Hemoglobin 8.4 g/dL (13.5-17.5)
[2016-05-31] MEDS: SODIUM CHLORIDE 0.9% 1,000 ML IV SCH (17:28)
[2016-05-31] MEDS ORDERED: RIFAXIMIN 550 MG TAB PO SCH (22:00)
== END 2016-05-31 19:00 | disposition home or self-care (01) | DRG 811 ==
LOC: ER 13:11 → TELE 13:12 → TELE-WESTW 20:01
PROVIDERS: ADMIT Internal Medicine; ATTEND Internal Medicine
PROC: 30233R1 Transfusion of Nonautologous Platelets into Peripheral Vein, Percutaneous Approach (ICD-10-PCS; principal; 2016-05-30)
PROC: 30233N1 Transfusion of Nonautologous Red Blood Cells into Peripheral Vein, Percutaneous Approach (ICD-10-PCS; 2016-05-30)
DX: D64.9 Anemia, unspecified (principal); E43 Unspecified severe protein-calorie malnutrition; E87.1 Hypo-osmolality and hyponatremia; K76.6 Portal hypertension; N18.3 Chronic kidney disease, stage 3 (moderate); K70.30 Alcoholic cirrhosis of liver without ascites; F17.210 Nicotine dependence, cigarettes, uncomplicated; D69.6 Thrombocytopenia, unspecified; K72.90 Hepatic failure, unspecified without coma; F10.10 Alcohol abuse, uncomplicated; Z68.36 Body mass index [BMI] 36.0-36.9, adult
CPT/HCPCS: 36415; 70450; 71010; 80053; 81001; 82140; 82270; 82962; 83735; 84484; 85014; 85018; 85025; 85610; 85730; 86850; 86900; 86901; 86920; 87081; 87086; 87088; 87186; 93005; 94761

== ENCOUNTER 2016-06-04 16:04 | Emergency (ER) | payer MEDICARE ==
[~2016-06-04] VITALS: Ht 172.7 cm; Wt 104.3 kg
[~2016-06-04 16:04] MED LIST changes: -CHOL1TAB42 PO; +CIPR-173 PO; -DICY20TA66 PO; -DOCU100C8 PO; +MID10T PO; +PANT1INJ3 PO; +RIFA550T PO
[2016-06-04 17:15] LABS: Basophils # (auto) 0 uL; Basophils % (auto) 0.1 % (0.0-2.0); DEFINITIVE VIEW TRANSMISSION; Eosinophils # (auto) 0.1 uL; Eosinophils % (auto) 1.8 % (0.0-7.0); Hematocrit 28.8 % (41.0-53.0); Hemoglobin 9.7 g/dL (13.5-17.5); Lymphocytes # (auto) 0.4 uL; Lymphocytes % (auto) 10.2 % (10.0-50.0); Mean Corpuscular Hemoglobin 30.8 pg (28.0-32.0); Mean Corpuscular Hgb Conc. 33.6 g/dL (32.0-36.0); Mean Corpuscular Volume 91.6 fL (80.0-100.0); Mean Platelet Volume 8.5 fL (7.4-10.4); Monocytes # (auto) 0.4 uL; Monocytes % (auto) 9.1 % (0.0-12.0); Neutrophils # (auto) 3.2 uL; Neutrophils % (auto) 78.8 % (37.0-80.0); Platelet Count (auto) 103 10^3/uL (140-450); Red Cell Distribution Width 26.8 % (11.6-16.0); SUSPECT VIEW TRANSMISSION; White Blood Cell 4.1 10^3/uL (4.4-10.8)
[2016-06-04 17:16] LABS: Albumin 2.6 g/dL (3.4-5.0); BUN/Creatinine Ratio 17.1; Calcium 7.6 mg/dL (8.5-10.1); Magnesium 2.4 mg/dL (1.6-2.6); Potassium 4.1 mmol/L (3.5-5.1)
[2016-06-04 17:34] LABS: Bilirubin, Total 22.5 mg/dL (0.2-1.0); Total Protein 6.4 g/dL (6.4-8.2)
[2016-06-04] MEDS ORDERED: cefTRIAXone 1GM/50ML D5W 50 ML IV ONE (19:15)
[2016-06-04 19:26] LABS: Partial Thromboplastin Time 34.5 sec (22.64-33.71)
[2016-06-04 19:30] LABS: INR 1.42 (0.9-1.15); Prothrombin Time 14.6 sec (9.37-12.3)
[2016-06-04 20:46] VITALS: BP 105/69
[2016-06-04 22:45] LABS: Amylase 51 U/L (25-115)
== END 2016-06-04 20:48 | disposition home or self-care (01) ==
LOC: ER 16:11
DX: J90 Pleural effusion, not elsewhere classified (principal); K74.60 Unspecified cirrhosis of liver; F17.210 Nicotine dependence, cigarettes, uncomplicated
CPT/HCPCS: 36415; 36600; 71020; 80053; 82150; 82805; 83690; 83735; 84484; 85025; 85610; 85730; 86141; 93005; 96365; 99285; J0696; J7030; 94761

== ENCOUNTER 2019-05-06 08:08 | Emergency (ER) | payer MEDICARE ==
[~2019-05-06] VITALS: Ht 172.7 cm; Wt 113.4 kg
[~2019-05-06 08:08] MED LIST changes: +BUME1TAB3 PO; +CHOL50007 PO; -CIPR-173 PO; -FAM20T PO; -FURO40TA4 PO; -LACT10SO PO; -MID10T PO; +MULT1TAB23 PO; -PANT1INJ3 PO; -RIFA550T PO; +SENN-126; +SPECTAB; -SPIR100T PO; +TACR1CAP19 PO
[2019-05-06 09:15] VITALS: BP 129/63
[2019-05-06] MEDS ORDERED: ACETAMINOPHEN/CODEINE#3 (300/30mg) TAB PO ONE (09:45)
== END 2019-05-06 10:04 | disposition home or self-care (01) ==
LOC: ER 08:15
DX: M25.572 Pain in left ankle and joints of left foot (principal); M79.672 Pain in left foot
CPT/HCPCS: 73630

== ENCOUNTER 2019-06-17 19:43 | Inpatient (IN) | payer MEDICARE ==
[~2019-06-17] VITALS: Ht 172.7 cm; Wt 105.2 kg
[2019-06-17] MEDS ORDERED: InsuLIN REG 1unit/0.01ml Soln (100units/ml) IV ONE (20:45)
[2019-06-17] MEDS ORDERED: SODIUM CHLORIDE 0.9% 1,000 ML IV ONE ×2 (20:45→23:00)
[2019-06-17 21:08] LABS: Basophils # (auto) 0 uL; Basophils % (auto) 0.4 % (0.0-2.0); Eosinophils # (auto) 0.1 uL; Eosinophils % (auto) 1.3 % (0.0-7.0); Hematocrit 45.4 % (41.0-53.0); Hemoglobin 15.2 g/dL (13.5-17.5); Lymphocytes # (auto) 0.9 uL; Lymphocytes % (auto) 23.1 % (10.0-50.0); Mean Corpuscular Hemoglobin 33.7 pg (28.0-32.0); Mean Corpuscular Hgb Conc. 33.6 g/dL (32.0-36.0); Mean Corpuscular Volume 100.3 fL (80.0-100.0); Monocytes # (auto) 0.3 uL; Monocytes % (auto) 8.1 % (0.0-12.0); Neutrophils # (auto) 2.7 uL; Neutrophils % (auto) 67.1 % (37.0-80.0); Platelet Count (auto) 106 10^3/uL (140-450); Red Blood Cells 4.52 10^6/uL (4.5-5.90); Red Cell Distribution Width 14.2 % (11.8-14.3)
[2019-06-17 21:10] LABS: Urine Bacteria NONE SEEN /hpf (None Seen); Urine Blood Negative /uL (Negative); Urine WBC <1 /hpf (0 - 3)
[2019-06-17 21:23] LABS: INR 0.96 (0.9-1.15); Partial Thromboplastin Time 27.4 sec (23.64-32.05)
[2019-06-17 21:30] LABS: Albumin 3.6 g/dL (3.4-5.0); Calcium 8.5 mg/dL (8.5-10.1); Magnesium 2.4 mg/dL (1.6-2.6); Potassium 4.9 mmol/L (3.5-5.1)
[2019-06-17 21:39] LABS: BUN/Creatinine Ratio 15.9; Bilirubin, Total 0.8 mg/dL (0.2-1.0); Total Protein 7.8 g/dL (6.4-8.2)
[2019-06-17 23:52] LABS: Calcium 7.7 mg/dL (8.5-10.1); Potassium 3.5 mmol/L (3.5-5.1)
[2019-06-18 00:02] LABS: BUN/Creatinine Ratio 18.6
[2019-06-18] MEDS ORDERED: HYDROcodone-ACET 5/325MG TAB PO PRN (03:45)
[2019-06-18] MEDS ORDERED: INSULIN LANTUS (GLARGINE) 1 /0.01ml (100units/ml) SC ONE ×2 (03:45→09:30)
[2019-06-18] MEDS ORDERED: DOCUSATE SOD 100 MG CAP PO PRN (03:45)
[2019-06-18] MEDS ORDERED: ACETAMINOPHEN 325 MG TAB PO PRN (03:45)
[2019-06-18] MEDS ORDERED: DEXTROSE (50%) 50ML SYRG IV PRN ×2 (03:45→09:30)
[2019-06-18] MEDS ORDERED: ONDANSETRON HCL 4 MG/2 ML VIAL IV PRN (03:45)
[2019-06-18] MEDS: ACCU-CHEK COMFORT CURVE STRIP VI SCH ×6 (04:30→16:23)
[2019-06-18] MEDS: InsuLIN R (HUMAN) 100 UNITS in SODIUM CHL 0.9% 99 ML IV SCH ×2 (05:08→06:45)
[2019-06-18 06:59] LABS: Basophils # (auto) 0 uL; Basophils % (auto) 0.3 % (0.0-2.0); Eosinophils # (auto) 0.1 uL; Lymphocytes # (auto) 0.9 uL; Mean Corpuscular Hemoglobin 34.1 pg (28.0-32.0); Monocytes # (auto) 0.3 uL; Neutrophils # (auto) 2.4 uL; Nucleated Red Blood Cells % 0.1 %
[2019-06-18 07:01] LABS: Eosinophils % (auto) 1.7 % (0.0-7.0); Hemoglobin 14.2 g/dL (13.5-17.5); Lymphocytes % (auto) 25.3 % (10.0-50.0); Mean Corpuscular Hgb Conc. 34.7 g/dL (32.0-36.0); Mean Corpuscular Volume 98.1 fL (80.0-100.0); Monocytes % (auto) 7.2 % (0.0-12.0); Neutrophils % (auto) 65.5 % (37.0-80.0); Platelet Count (auto) 93 10^3/uL (140-450); Red Blood Cells 4.18 10^6/uL (4.5-5.90); Red Cell Distribution Width 14.1 % (11.8-14.3); White Blood Cell 3.6 10^3/uL (4.4-10.8)
[2019-06-18 07:21] LABS: Potassium 3.9 mmol/L (3.5-5.1)
[2019-06-18 07:25] LABS: BUN/Creatinine Ratio 19.1
[2019-06-18] MEDS: SODIUM CHLORIDE 0.9% 1,000 ML IV SCH ×2 (08:02→08:33)
[2019-06-18] MEDS ORDERED: SODIUM CHLORIDE 0.9% 1,000 ML IV SCH (09:30)
[2019-06-18] MEDS: InsuLIN REG 1unit/0.01ml Soln (100units/ml) SC SCH ×2 (12:00→16:00)
[2019-06-18 13:00] VITALS: BP 112/61
[2019-06-18] MEDS ORDERED: metFORMIN HYDROCHLORIDE 500 MG TAB PO ONE (14:30)
[2019-06-18 15:22] LABS: BUN/Creatinine Ratio 15.8; Calcium 7.7 mg/dL (8.5-10.1); Potassium 4.8 mmol/L (3.5-5.1)
[2019-06-18] MEDS ORDERED: METF-372 PO (15:40)
[2019-06-18 17:00] VITALS: BP 127/76
[2019-06-18 17:44] VITALS: BP 112/61
[2019-06-19] MEDS ORDERED: INSULIN LANTUS (GLARGINE) 1 /0.01ml (100units/ml) SC SCH (10:00)
== END 2019-06-18 20:09 | disposition home or self-care (01) | DRG 637 ==
LOC: ER 19:43 → TELE 19:44 → TELE-CENTR 06-18 11:00
PROVIDERS: ADMIT Hospitalist; ATTEND Internal Medicine
DX: E11.65 Type 2 diabetes mellitus with hyperglycemia (principal); N17.0 Acute kidney failure with tubular necrosis; E87.1 Hypo-osmolality and hyponatremia; Z94.4 Liver transplant status; F17.210 Nicotine dependence, cigarettes, uncomplicated; E11.22 Type 2 diabetes mellitus with diabetic chronic kidney disease; N18.9 Chronic kidney disease, unspecified; Z85.3 Personal history of malignant neoplasm of breast
CPT/HCPCS: 36415; 80048; 80053; 80061; 81001; 82010; 82962; 83036; 83735; 84443; 85025; 85610; 85730; 96361; 96365; 96375; G0378; J1815

== ENCOUNTER 2024-05-26 10:22 | Emergency (ER) | payer BC, MEDICARE ==
[~2024-05-26] VITALS: Ht 167.6 cm; Wt 97.7 kg
[~2024-05-26 10:22] MED LIST changes: +METF-372 PO; -SENN-126; +[UNRECOGNIZED DRUG - CODE]
[2024-05-26] MEDS: cefTRIAXone SOD 1,000 MG VL IM ONE (11:24)
[2024-05-26] MEDS: LIDOCAINE 1% HCL (LOCAL ANESTH.) INJ 20ML MDV ID ONE (11:26)
[2024-05-26] MEDS: TETANUS-DIPTH-ACEL PERTUSSIS 0.5ML SYR Tdap IM ONE (11:27)
--- NOTE | 2024-05-26 11:41 | ED.PDOC ---
HPI Comments 79 y.o male with PMHx of liver transplant and DM, presents to the ED for an evaluation of a laceration. Daughter at bedside reports patient was working with an electric saw that bounced back to his left knee and cut deep. Patient denies any fever, chills, nausea, vomiting. Laceration is not actively bleeding and no discharge noted. Chief Complaint: Laceration Time Seen by MD: 10:50 Primary Care Provider: OOA Reviewed Notes: Nurses Notes, Medications, Allergies Allergies: Coded Allergies: NO KNOWN ALLERGIES (Unverified , 04/12/16) Home Meds Active Scripts Metformin Hydrochloride (Metformin Hcl) 1,000 Mg Tab, 1 TAB PO BID, #60 TAB Prov:ALMA GRAY MD 06/18/19 Reported Medications Tacrolimus (ASTAGRAF XL) 1 Mg Cap, 2 MG PO BID, CAP 07/15/18 Bumetanide (Bumetanide) 1 Mg Tab, 1 MG PO DAILY for 30 Days, MG 07/15/18 Cholecalciferol (VITAMIN D3) 5,000 Unit Cap, 5000 UNIT PO DAILY, CAP 07/15/18 Multiple Vitamin (Multi Vitamin Daily) 1 Tab Tab, 1 TAB PO DAILY , TAB 07/15/18 Specialty Vitamins Products (Mg-Plus Protein) Protein Tab 07/15/18 Senna (EVAC-U-GEN) 8.6 Mg Tab 07/15/18 Information Source: Patient, Relative (Child) Mode of Arrival: Wheelchair Severity: Moderate Severity of Laceration: Controlled Bleeding Complexity: Simple Timing: Hours Laceration Location: Leg (left knee ) Mechanism: Other (saw) Laceration Length (cm): 15 Depth of Injury: Skin Tender: Moderate Discharge: None Associated Signs and Symptoms: Bleeding Past Medical History PAST MEDICAL HISTORY: DM, Liver Surgical History: Hernia Repair Family History Family History: Unobtainable Social History Smoker: Cigarettes, Less Than 1 Pack/Day Alcohol: Sober Drugs: Denies Drug Use Lives In: Home Constitutional: denies: chills, diaphoresis, fatigue, fever, malaise, sweats, weakness, others Respiratory: denies: cough, hemoptysis, orthopnea, SOB at rest, shortness of breath, SOB with excertion, stridor, wheezing, others Cardiovascular: denies: chest pain, dizzy spells, diaphoresis, Dyspnea on exertion, edema, irregular heart beat, left arm pain, lightheadedness, palpitations, PND, syncope, others Gastrointestinal: denies: abdomen distended, abdominal pain, blood streaked bowels, constipated, diarrhea, dysphagia, difficulty swallowing, hematemesis, melena, nausea, poor appetite, poor fluid intake, rectal bleeding, rectal pain, vomiting, others Genitourinary: denies: burning, dysuria, flank pain, frequency, hematuria, incontinence, penile discharge, penile sore, pain, testicle pain, testicle swelling, urgency, others Neurological: denies: dizziness, fainting, headache, left sided numbness, left sided weakness, numbness, paresthesia, pre-existing deficit, right sided numbness, right sided weakness, seizure, speech problems, tingling, tremors, weakness, others Musculoskeletal: denies: back pain, gout, joint pain, joint swelling, muscle pain, muscle stiffness, neck pain, others Integumetry: reports: laceration (left knee ); denies: bruises, change in color, change in hair/nails, dryness, lesions, lumps, rash, wounds, others Allergic/Immunocompromised: denies: Difficulty Healing, Frequent Infections, Hives, Itching, others Hematologic/Lymphatic: denies: anemia, blood clots, easy bleeding, easy bruisi ng, swollen glands, others Endocrine: denies: excessive hunger, excessive sweating, excessive thirst, exce ssive urination, flushing, intolerance to cold, intolerance to heat, unexplained weight gain, unexplained weight loss, others Psychiatric: denies: anxiety, bipolar disorder, depression, hopeless, panic disorder, schizophrenia, sleepless, suicidal, others All Other Systems: Reviewed and Negative Physical Exam General Appearance: No Apparent Distress, Normal HEENT: Normal ENT Inspection, Pharynx Normal, TMs Normal Neck: Full Range of Motion, Non-Tender, Normal, Normal Inspection Respiratory: Chest Non-Tender, Lungs Clear, No Accessory Muscle Use, No Respiratory Distress, Normal Breath Sounds Cardiovascular: No Edema, No JVD, No Murmur, No Gallop, Normal Peripheral Pulses, Regular Rate/Rhythm Breast Exam: Deferred Gastrointestinal: No Organomegaly, Non Tender, No Pulsatile Mass, Normal Bowel Sounds, Soft Genitalia: Deferred Pelvic: Deferred Rectal: Deferred Extremities: No calf tenderness, Normal capillary refill, Normal inspection, Normal range of motion, Non-tender, No pedal edema Musculoskeletal : Apperance: Normal Neurologic: Alert, 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 Was a procedure done?: Yes Sedation Sedation?: No Informed consent obtained: No Laceration Repair : Location left knee Length 15cm long length Anesthetic: Lidocaine Laceration Repair Prep: Saline Laceration Repair Wound Comple: epidermis/dermis repair Laceration Repair: Number of sutures (12) Informed consent obtained: Yes Risks, benefits, and alternati: Yes Differential diagnosis Generic Laceration: Hematoma, Fracture, Retained Foriegn Body, Neurovascular Injury, Tendon Injury, Abrasion/Contusion, Laceration, Avulsion, Amputation X-Ray, Labs, Meds, VS Vital Signs Date Time Temp Pulse Resp B/P (MAP) Pulse Ox O2 Delivery O2 Flow Rate FiO2 05/26/24 10:57 98.1 77 18 133/82 (99) 98 Current Medications Medications (Trade) Dose Ordered Sig/Trae Route Start Time Stop Time Status Last Admin Diphtheria/ Tetanus/Acell Pertussis (Boostrix T-Dap) 0.5 ml ONCE ONCE IM 05/26/24 11:15 05/26/24 11:16 DC 05/26/24 11:27 Lidocaine HCl (Xylocaine 1%) 5 ml ONCE ONCE ID 05/26/24 11:15 05/26/24 11:16 DC 05/26/24 11:26 Ceftriaxone Sodium (Rocephin) 1,000 mg ONCE ONCE IM 05/26/24 11:15 05/26/24 11:16 DC 05/26/24 11:24 Neomycin/ Polymyxin/ Bacitracin (Triple Antibiotic) 1 applic ONCE ONCE TOP 05/26/24 11:45 05/26/24 11:46 DC 05/26/24 11:47 Time of 1ST Reevaluation: 11:27 Reevaluation 1ST: Unchanged Time of 2ND Reevaluation: 11:53 Reevaluation 2ND: Improved Patient Education/Counseling: Diagnosis, Treatment, Prognosis, Need For Follow Up Family Education/Counseling: Diagnosis, Treatment, Prognosis, Need For Follow Up, No Family Present Additional Information I reviewed the following notes from patient's past medical encounters: 06/17/19 new onset of diabetes diagnose The following tests were ordered, and results were reviewed by me: Laceration repair kit with tetanus vaccine Additional Information was gathered from interviewing the following independent historians: Daughter I reviewed and agreed with the following test results read by other providers: None I discussed treatment and results with medical personnel and family due to concerns for pt being on immunosuppressant with the liver transplant, i started him on antibiotic. he will continue his immunosuppressants and have close follow ups with his doctor Departure 1 Departure Time of Disposition: 11:53 Impression: Primary Impression: Knee laceration Qualified Codes: S81.012A - Laceration without foreign body, left knee, initial encounter Disposition: HOME / SELF CARE / HOMELESS Condition: Good Additional Instructions: keep wound clean and dry. avoid bending of the knee for 3-5 days. slowly increase range of motion by bending of knee afterward. follow up for staple removal in 10 days. return for any signs of an infection or other concerns e-Prescriptions Cephalexin Monohydrate (Cephalexin) 500 Mg Tab 1 TAB PO QID, #40 TAB Prov: JORGE DYER MD 05/26/24 Discharged With: Self, Relative Critical Care Note Critical Care Time?: No Stability Stability form required: No I personally scribed for JORGE DYER MD ([email or web address]) on 05/26/24 at 11:41. Electronically submitted by Yesica Billy ([facility]). JORGE DYER MD May 26, 2024 11:41
[2024-05-26] MEDS: NEOMYCIN-BACITRACIN-POLYM UNITDOSE PKG TOP OINT TOP ONE (11:47)
[2024-05-26] MEDS ORDERED: CEPH500T PO (11:57)
[2024-05-26 12:27] VITALS: BP 125/72; RESP 15; TEMP 99.1; O2SAT 99
[2024-05-26 12:35] VITALS: PULSE 83
== END 2024-05-26 12:50 | disposition home or self-care (01) ==
LOC: ER 10:22
DX: S81.012A Laceration without foreign body, left knee, initial encounter (principal); E11.9 Type 2 diabetes mellitus without complications; F17.210 Nicotine dependence, cigarettes, uncomplicated; Z98.890 Other specified postprocedural states; Z79.899 Other long term (current) drug therapy; X58.XXXA Exposure to other specified factors, initial encounter; Y93.89 Activity, other specified; Y92.89 Other specified places as the place of occurrence of the external cause; Y99.8 Other external cause status
CPT/HCPCS: 12005; 90471; 90715; 96372; 99284; J0696; J2003

== ENCOUNTER 2024-06-15 14:50 | Emergency (ER) | payer BC ==
[~2024-06-15] VITALS: Ht 200.7 cm; Wt 99.6 kg
[~2024-06-15 14:50] MED LIST changes: +CEPH500T PO
--- NOTE | 2024-06-15 15:38 | ED.PDOC ---
General HPI Comments 79-year-old male presents with a chief complaint of hematuria, dysuria, and laceration. Patient states that today he started to have spontaneous episodes of hematuria and also pain with urination. Subsequently, patient was sawing some wood today as well when the saw slipped in his hand and he lacerated his proximal fourth digit on his right hand. Bleeding is controlled at this time. No other symptoms or modifying factors present at this time. Chief Complaint: Urinary Time Seen by MD: 15:28 Primary Care Provider: OOA Reviewed notes: Nurses Notes, Medications, Allergies Allergies: Coded Allergies: NO KNOWN ALLERGIES (Unverified , 04/12/16) Home Meds Active Scripts Cephalexin Monohydrate (Cephalexin) 500 Mg Tab, 1 TAB PO QID, #40 TAB Prov:JORGE DYER MD 05/26/24 Metformin Hydrochloride (Metformin Hcl) 1,000 Mg Tab, 1 TAB PO BID, #60 TAB Prov:ALMA GRAY MD 06/18/19 Reported Medications Tacrolimus (ASTAGRAF XL) 1 Mg Cap, 2 MG PO BID, CAP 07/15/18 Bumetanide (Bumetanide) 1 Mg Tab, 1 MG PO DAILY for 30 Days, MG 07/15/18 Cholecalciferol (VITAMIN D3) 5,000 Unit Cap, 5000 UNIT PO DAILY, CAP 07/15/18 Multiple Vitamin (Multi Vitamin Daily) 1 Tab Tab, 1 TAB PO DAILY , TAB 07/15/18 Specialty Vitamins Products (Mg-Plus Protein) Protein Tab 07/15/18 Senna (EVAC-U-GEN) 8.6 Mg Tab 07/15/18 Information Source: Patient, Relative (Child) Mode of Arrival: Ambulatory Severity: Moderate Inability to void: None Timing: Hours Duration: Since onset Has not urinated for: Minutes Prehospital treatment: None Onset: Spontaneous Symptoms: Dysuria, Hematuria History of: None Location: Abdomen Penile discharge: None Modifying factors: None associated signs and symptoms: Dysuria, Hematuria Past Medical History PAST MEDICAL HISTORY: DM, Liver Surgical History: Hernia Repair Family History Family History: Unobtainable Social History Smoker: Cigarettes, Less Than 1 Pack/Day Alcohol: Sober Drugs: Denies Drug Use Lives In: Home Constitutional: denies: chills, diaphoresis, fatigue, fever, malaise, sweats, weakness, others EENTM: denies: blurred vision, double vision, ear bleeding, ear discharge, ear drainage, ear pain, ear ringing, eye pain, eye redness, hearing loss, mouth pa in, mouth swelling, nasal discharge, nose bleeding, nose congestion, nose pain, photophobia, tearing, throat pain, throat swelling, voice changes, others Respiratory: denies: cough, hemoptysis, orthopnea, SOB at rest, shortness of breath, SOB with excertion, stridor, wheezing, others Cardiovascular: denies: chest pain, dizzy spells, diaphoresis, Dyspnea on exertion, edema, irregular heart beat, left arm pain, lightheadedness, palpitations, PND, syncope, others Gastrointestinal: denies: abdomen distended, abdominal pain, blood streaked bowels, constipated, diarrhea, dysphagia, difficulty swallowing, hematemesis, melena, nausea, poor appetite, poor fluid intake, rectal bleeding, rectal pain, vomiting, others Genitourinary: reports: dysuria, hematuria; denies: burning, flank pain, frequency, incontinence, penile discharge, penile sore, pain, testicle pain, testicle swelling, urgency, others Neurological: denies: dizziness, fainting, headache, left sided numbness, left sided weakness, numbness, paresthesia, pre-existing deficit, right sided numbness, right sided weakness, seizure, speech problems, tingling, tremors, weakness, others Musculoskeletal: denies: back pain, gout, joint pain, joint swelling, muscle pain, muscle stiffness, neck pain, others Integumetry: reports: laceration (Proximal right ring finger); denies: bruises, change in color, change in hair/nails, dryness, lesions, lumps, rash, wounds, others Allergic/Immunocompromised: denies: Difficulty Healing, Frequent Infections, Hives, Itching, others Hematologic/Lymphatic: denies: anemia, blood clots, easy bleeding, easy bruising, swollen glands, others Endocrine: denies: excessive hunger, excessive sweating, excessive thirst, excessive urination, flushing, intolerance to cold, intolerance to heat, unexplained weight gain, unexplained weight loss, others Psychiatric: denies: anxiety, bipolar disorder, depression, hopeless, panic disorder, schizophrenia, sleepless, suicidal, others All Other Systems: Reviewed and Negative Physical Exam General Appearance: Mild Distress (Due to finger laceration concerns and hematuria concerns), Obese HEENT: Normal ENT Inspection, Pharynx Normal, TMs Normal Neck: Full Range of Motion, Non-Tender, Normal, Normal Inspection Respiratory: Chest Non-Tender, Lungs Clear, No Accessory Muscle Use, No Respiratory Distress, Normal Breath Sounds Cardiovascular: No Edema, No JVD, No Murmur, No Gallop, Normal Peripheral Pulses, Regular Rate/Rhythm Breast Exam: Deferred Gastrointestinal: No Pulsatile Mass, Normal Bowel Sounds, Soft, Tenderness (Mild diffuse bilateral lower abdominal/pelvic tenderness to palpation. Suprapubic tenderness noted.) Genitalia: Deferred Pelvic: Deferred Rectal: Deferred Extremities: No calf tenderness, Normal capillary refill, No pedal edema, Other (Patient displays a 3 cm laceration at the MCP, palmar aspect of his right ring finger. No tendon involvement, but the laceration extends from medial to lateral aspect of the finger. No active bleed.) Musculoskeletal : Apperance: Normal Neurologic: Alert, No Motor Deficits, Normal Affect, Normal Mood, No Sensory Deficits Cerebellar Function: Normal Reflexes: Normal Skin: Dry, Normal Color, Warm Lymphatic: No Adenopathy Was a procedure done? Was a procedure done?: Yes Sedation Sedation?: No Other Procedure Notes 5 cc of 1% lidocaine was utilized for local digital block of the right ring finger. Sterile field placed. Copious irrigation performed. Ten 4-0 Ethilon sutures were utilized in a simple interrupted fashion to close the laceration. Minimal blood loss. Clean dressing applied. Patient tolerated procedure well. Differential Diagnosis Kidney stone (Female): Other (Pyelonephritis, UTI, hematuria, finger laceration) X-Ray, Labs, Meds, VS Vital Signs Date Time Temp Pulse Resp B/P (MAP) Pulse Ox O2 Delivery O2 Flow Rate FiO2 06/15/24 17:44 98.4 89 18 119/76 (90) 94 98.4 06/15/24 17:44 89 18 94 Room Air* 0 21 06/15/24 15:00 99.2 113 18 130/87 (101) 95 Lab Test 06/15/24 16:50 06/15/24 16:19 Range/Units White Blood Count 14.3 H 4.4-10.8 10^3/uL Red Blood Count 4.77 4.5-5.90 10^6/uL Hemoglobin 16.2 13.5-17.5 g/dL Hematocrit 47.4 41.0-53.0 % Mean Corpuscular Volume 99.2 80.0-100.0 fL Mean Corpuscular Hemoglobin 34.0 H 28.0-32.0 pg Mean Corpuscular Hemoglobin Concent 34.3 32.0-36.0 g/dL Red Cell Distribution Width 13.9 11.8-14.3 % Platelet Count 132 L 140-450 10^3/uL Mean Platelet Volume 7.4 6.9-10.8 fL Neutrophils (%) (Auto) 85.6 H 37.0-80.0 % Lymphocytes (%) (Auto) 7.3 L 10.0-50.0 % Monocytes (%) (Auto) 6.1 0.0-12.0 % Eosinophils (%) (Auto) 0.7 0.0-7.0 % Basophils (%) (Auto) 0.3 0.0-2.0 % Neutrophils # (Auto) 12.2 H 1.6-8.6 10 ^3/uL Lymphocytes # (Auto) 1.0 0.4-5.4 10 ^3/uL Monocytes # (Auto) 0.9 0-1.3 10 ^3/uL Eosinophils # (Auto) 0.1 0-0.8 10 ^3/uL Basophils # (Auto) 0 0-0.2 10 ^3/uL Nucleated Red Blood Cells 0.0 % Sodium Level 139 136-145 mmol/L Potassium Level 4.2 3.5-5.1 mmol/L Chloride Level 105 98-107 mmol/L Carbon Dioxide Level 24 20-31 mmol/L Anion Gap 10 5-15 Blood Urea Nitrogen 21 9-23 mg/dL Creatinine 1.28 0.700-1.30 mg/dL Glomerular Filtration Rate Calc 57 >90 mL/min BUN/Creatinine Ratio 16.4 10.0-20.0 Serum Glucose 144 H 74-106 mg/dL Calcium Level 9.5 8.7-10.4 mg/dL Urine Color Red H Yellow Urine Clarity Ex.turbid Clear Urine pH 5.5 5.0-9.0 Urine Specific [place] 1.034 1.001-1.035 Urine Protein 2+ H Negative Urine Ketones Negative Negative Urine Blood 3+ H Negative /uL Urine Nitrite Negative Negative Urine Bilirubin Negative Negative Urine Urobilinogen Normal Negative mg/dL Urine Leukocyte Esterase 2+ Negative /uL Urine RBC 3922 0 - 3 /hpf Urine Microscopic WBC 1491 H 0-3 /HPF Urine Squamous Epithelial Cells None seen <5 /hpf Urine Bacteria None seen None Seen /hpf Urine Glucose 4+ H Normal mg/dL X-Ray, Labs, Meds, VS Comment All studies performed in the ED were evaluated by me personally. Urinalysis confirmed a large urinary tract infection. Advised patient that he will need to return to ED or primary care provider in 10 days for re-evaluation and probable suture removal. Advise utilizing antibiotics as directed until completion. Time of 1ST Reevaluation: 18:00 Reevaluation 1ST: Improved Consultation: PCP Patient Education/Counseling: Diagnosis, Treatment, Prognosis Family Education/Counseling: Diagnosis, Treatment, Prognosis Departure 1 Departure Time of Disposition: 18:00 Impression: Primary Impression: UTI (urinary tract infection) Additional Impression: Finger laceration Disposition: HOME / SELF CARE / HOMELESS Condition: Stable Additional Instructions: Advised patient utilize antibiotics as directed until completion. Patient should do daily dressing changes. Patient should return to ED in 10 days for re-evaluation and probable suture removal. Patient should follow up with [facility] care provider for repeat of urinalysis to confirm resolution of urinary tract infection. e-Prescriptions Acetaminophen (Acetaminophen) 500 Mg Tab 500 MG PO Q4HP PRN, #30 TAB Prov: BRIAN MORALES PAC 06/15/24 Bacitracin Base (Bacitracin) 500 Unit/Gm Oin 500 UNIT TOP DAILY, #30 GM Prov: BRIAN MORALES PAC 06/15/24 Sulfamethoxazole W/Trimethopri (Bactrim Ds Tablet) 1 Tab Tb 1 TAB PO BID for 10 Days, #20 TAB Prov: BRIAN MORALES PAC 06/15/24 Discharged With: Self, Relative Critical Care Note Critical Care Time?: No Stability Stability form required: No I personally scribed for BRIAN MORALES PAC ([email or web address]) on 06/15/24 at 15:38. Electronically submitted by [place] ([email or web address]). BRIAN MORALES PAC Jun 15, 2024 15:38
[2024-06-15 16:21] LABS: Urine Bacteria None Seen /hpf (None Seen)
[2024-06-15] MEDS: LIDOCAINE 1% HCL (LOCAL ANESTH.) INJ 20ML MDV ID ONE (16:27)
[2024-06-15 16:49] LABS: Urine Blood 3+ /uL (Negative); Urine Clarity Ex.Turbid (Clear); Urine Color Red (Yellow); Urine Protein, UAD 2+ (Negative); Urine Specific Gravity 1.034 (1.001-1.035); Urine Squamous Epithelial Cell None Seen /hpf (<5); Urine Urobilinogen Normal (Negative); Urine WBC 1491 /HPF (0-3); Urine pH 5.5 (5.0-9.0)
[2024-06-15 17:14] LABS: Basophils # (auto) 0 10 ^3/uL (0-0.2); Basophils % (auto) 0.3 % (0.0-2.0); Eosinophils # (auto) 0.1 10 ^3/uL (0-0.8); Eosinophils % (auto) 0.7 % (0.0-7.0); Hematocrit 47.4 % (41.0-53.0); Hemoglobin 16.2 g/dL (13.5-17.5); Lymphocytes % (auto) 7.3 % (10.0-50.0); Mean Corpuscular Hgb Conc. 34.3 g/dL (32.0-36.0); Mean Corpuscular Volume 99.2 fL (80.0-100.0); Monocytes # (auto) 0.9 10 ^3/uL (0-1.3); Monocytes % (auto) 6.1 % (0.0-12.0); Neutrophils # (auto) 12.2 10 ^3/uL (1.6-8.6); Neutrophils % (auto) 85.6 % (37.0-80.0); Platelet Count (auto) 132 10^3/uL (140-450); Red Blood Cells 4.77 10^6/uL (4.5-5.90); Red Cell Distribution Width 13.9 % (11.8-14.3); White Blood Cell 14.3 10^3/uL (4.4-10.8)
[2024-06-15 17:23] LABS: Chloride 105 mmol/L (98-107); Potassium 4.2 mmol/L (3.5-5.1); Sodium 139 mmol/L (136-145)
[2024-06-15 17:24] LABS: Anion Gap 10 (5-15); Carbon Dioxide 24 mmol/L (20-31)
[2024-06-15 17:25] LABS: Calcium 9.5 mg/dL (8.7-10.4)
[2024-06-15 17:29] LABS: BUN/Creatinine Ratio 16.4 (10.0-20.0); Blood Urea Nitrogen 21 mg/dL (9-23)
[2024-06-15 17:38] LABS: Glucose 144 mg/dL (74-106)
[2024-06-15] MEDS: TETANUS-DIPTH-ACEL PERTUSSIS 0.5ML SYR Tdap IM ONE (17:38)
[2024-06-15 17:44] VITALS: PULSE 89; RESP 18; O2SAT 94
[2024-06-15] MEDS ORDERED: BACIOIN15 TOP (18:03)
[2024-06-15] MEDS ORDERED: BACDST PO (18:03)
[2024-06-15] MEDS ORDERED: ACET500T58 PO (18:03)
[2024-06-15 18:43] VITALS: BP 118/75; PULSE 88; RESP 16; TEMP 97.7; O2SAT 96
== END 2024-06-15 18:45 | disposition home or self-care (01) ==
LOC: ER 14:50
DX: S61.214A Laceration without foreign body of right ring finger without damage to nail, initial encounter (principal); N39.0 Urinary tract infection, site not specified; E11.9 Type 2 diabetes mellitus without complications; F17.210 Nicotine dependence, cigarettes, uncomplicated; Z98.890 Other specified postprocedural states; Z79.621 Long term (current) use of calcineurin inhibitor; Z79.84 Long term (current) use of oral hypoglycemic drugs; Z79.899 Other long term (current) drug therapy; W26.8XXA Contact with other sharp object(s), not elsewhere classified, initial encounter; Y93.89 Activity, other specified; Y92.89 Other specified places as the place of occurrence of the external cause; Y99.8 Other external cause status
CPT/HCPCS: 12002; 36415; 80048; 81001; 85025; 99283; J2003

== ENCOUNTER 2024-06-25 09:39 | Emergency (ER) | payer BC ==
[~2024-06-25] VITALS: Ht 170.2 cm; Wt 98.7 kg
[~2024-06-25 09:39] MED LIST changes: +ACET500T58 PO; +BACDST PO; +BACIOIN15 TOP
[2024-06-25 10:59] VITALS: BP 123/76; PULSE 87; RESP 16; TEMP 98.5; O2SAT 95
--- NOTE | 2024-06-25 11:18 | ED.PDOC ---
History of Present Illness(SKN HPI Comments 79 year old presents for suture removal. No other complaint. Chief Complaint: Suture Removal Time Seen by MD: 10:25 Primary Care Provider: unknown History of Present Illness: Nurses Notes, Medications, Allergies Allergies: Coded Allergies: NO KNOWN ALLERGIES (Unverified , 04/12/16) Home Meds Active Scripts Acetaminophen (Acetaminophen) 500 Mg Tab, 500 MG PO Q4HP PRN, #30 TAB Prov:BRIAN MORALES PAC 06/15/24 Bacitracin Base (Bacitracin) 500 Unit/Gm Oin, 500 UNIT TOP DAILY, #30 GM Prov:BRIAN MORALES PAC 06/15/24 Sulfamethoxazole W/Trimethopri (Bactrim Ds Tablet) 1 Tab Tb, 1 TAB PO BID for 10 Days, #20 TAB Prov:BRIAN MORALES PAC 06/15/24 Cephalexin Monohydrate (Cephalexin) 500 Mg Tab, 1 TAB PO QID, #40 TAB Prov:JORGE DYER MD 05/26/24 Metformin Hydrochloride (Metformin Hcl) 1,000 Mg Tab, 1 TAB PO BID, #60 TAB Prov:ALMA GRAY MD 06/18/19 Reported Medications Tacrolimus (ASTAGRAF XL) 1 Mg Cap, 2 MG PO BID, CAP 07/15/18 Bumetanide (Bumetanide) 1 Mg Tab, 1 MG PO DAILY for 30 Days, MG 07/15/18 Cholecalciferol (VITAMIN D3) 5,000 Unit Cap, 5000 UNIT PO DAILY, CAP 07/15/18 Multiple Vitamin (Multi Vitamin Daily) 1 Tab Tab, 1 TAB PO DAILY , TAB 07/15/18 Specialty Vitamins Products (Mg-Plus Protein) Protein Tab 07/15/18 Senna (EVAC-U-GEN) 8.6 Mg Tab 07/15/18 Information Source: Relative (Mother) Mode of Arrival: Ambulatory Past Medical History PAST MEDICAL HISTORY: DM, Liver Surgical History: Hernia Repair Family History Family History: Unobtainable Social History Smoker: Cigarettes, Less Than 1 Pack/Day Alcohol: Sober Drugs: Denies Drug Use Lives In: Home All Other Systems: Reviewed and Negative (Per HPI) Physical Exam General Appearance: No Apparent Distress, Normal HEENT: Normal ENT Inspection, Pharynx Normal, TMs Normal Neck: Full Range of Motion, Non-Tender, Normal, Normal Inspection Respiratory: Chest Non-Tender, Lungs Clear, No Accessory Muscle Use, No Respiratory Distress, Normal Breath Sounds Cardiovascular: No Murmur, No Gallop, Regular Rate/Rhythm Breast Exam: Deferred Gastrointestinal: No Organomegaly, Non Tender, No Pulsatile Mass, Normal Bowel Sounds, Soft Genitalia: Deferred Pelvic: Deferred Rectal: Deferred Extremities: No calf tenderness, Normal capillary refill, Normal inspection, Normal range of motion, Non-tender, No pedal edema Musculoskeletal : Apperance: Normal Neurologic: Alert, No Motor Deficits, Normal Affect, No Sensory Deficits Cerebellar Function: Normal Reflexes: Normal Skin: Dry, Normal Color, Warm Lymphatic: No Adenopathy Was a procedure done? Was a procedure done?: No Differential Diagnosis (INTG) Differential Diagnosis: Laceration X-Ray, Labs, Meds, VS Vital Signs Date Time Temp Pulse Resp B/P (MAP) Pulse Ox O2 Delivery O2 Flow Rate FiO2 06/25/24 10:59 98.5 87 16 123/76 (92) 95 98.5 06/25/24 10:59 87 16 95 Room Air 06/25/24 10:01 98.5 87 16 123/76 (92) 95 X-Ray, Labs, Meds, VS Comment Presents for suture removal. Will return in 3 days for removal. agreed to plain Time of 1ST Reevaluation: 11:00 Reevaluation 1ST: Improved Patient Education/Counseling: Diagnosis, Treatment Family Education/Counseling: Diagnosis, Treatment Departure 1 Departure Time of Disposition: 11:18 Impression: Primary Impression: Visit for suture removal Disposition: HOME / SELF CARE / HOMELESS Condition: Stable Critical Care Note Critical Care Time?: No Stability Stability form required: No Heart Score Heart Score: Heart Score Response (Comments) Value History N/A 0 EKG N/A 0 Age N/A 0 Risk Factors N/A 0 Troponin N/A 0 Total 0 SASHA HERNANDEZ NP Jun 25, 2024 11:18
== END 2024-06-25 11:20 | disposition home or self-care (01) ==
LOC: ER 09:39
DX: S61.214D Laceration without foreign body of right ring finger without damage to nail, subsequent encounter (principal); F17.210 Nicotine dependence, cigarettes, uncomplicated; E11.9 Type 2 diabetes mellitus without complications; Z98.890 Other specified postprocedural states; Z79.899 Other long term (current) drug therapy; Z79.84 Long term (current) use of oral hypoglycemic drugs; Z48.02 Encounter for removal of sutures; X58.XXXD Exposure to other specified factors, subsequent encounter

== ENCOUNTER 2024-06-27 06:24 | Emergency (ER) | payer BC ==
[~2024-06-27] VITALS: Ht 172.7 cm; Wt 97.6 kg
[2024-06-27 07:58] VITALS: BP 109/74; PULSE 81; RESP 18; TEMP 97.8; O2SAT 96
[2024-06-27] MEDS ORDERED: BACDST PO (08:49)
--- NOTE | 2024-06-27 08:49 | ED.PDOC ---
HPI Comments 79-year-old male presents with his daughter for wound check. Recently has stitches but reports wound has not closed completely Drainage from the wound. Denies a surrounding erythematous denies fevers chills nausea vomiting diarrhea Chief Complaint: Suture Removal Time Seen by MD: 07:01 Primary Care Provider: unknown Reviewed Notes: Nurses Notes, Medications, Allergies Allergies: Coded Allergies: NO KNOWN ALLERGIES (Unverified , 04/12/16) Home Meds Active Scripts Sulfamethoxazole W/Trimethopri (Bactrim Ds Tablet) 1 Tab Tb, 1 TAB PO BID for 7 Days, #14 TAB 0 Refills Prov:SASHA HERNANDEZ DEPUTY SHERIFF K9 HAND[employer]ER 06/27/24 Acetaminophen (Acetaminophen) 500 Mg Tab, 500 MG PO Q4HP PRN, #30 TAB Prov:BRIAN MORALES PAC 06/15/24 Bacitracin Base (Bacitracin) 500 Unit/Gm Oin, 500 UNIT TOP DAILY, #30 GM Prov:BRIAN MORALES PAC 06/15/24 Sulfamethoxazole W/Trimethopri (Bactrim Ds Tablet) 1 Tab Tb, 1 TAB PO BID for 10 Days, #20 TAB Prov:BRIAN MORALES PAC 06/15/24 Cephalexin Monohydrate (Cephalexin) 500 Mg Tab, 1 TAB PO QID, #40 TAB Prov:JORGE DYER MD 05/26/24 Metformin Hydrochloride (Metformin Hcl) 1,000 Mg Tab, 1 TAB PO BID, #60 TAB Prov:ALMA GRAY MD 06/18/19 Reported Medications Tacrolimus (ASTAGRAF XL) 1 Mg Cap, 2 MG PO BID, CAP 07/15/18 Bumetanide (Bumetanide) 1 Mg Tab, 1 MG PO DAILY for 30 Days, MG 07/15/18 Cholecalciferol (VITAMIN D3) 5,000 Unit Cap, 5000 UNIT PO DAILY, CAP 07/15/18 Multiple Vitamin (Multi Vitamin Daily) 1 Tab Tab, 1 TAB PO DAILY , TAB 07/15/18 Specialty Vitamins Products (Mg-Plus Protein) Protein Tab 07/15/18 Senna (EVAC-U-GEN) 8.6 Mg Tab 07/15/18 Information Source: Patient Mode of Arrival: Ambulatory Complexity: Complex Laceration Location: Digit #4 Laceration Length (cm): 4 Skin Type: Jagged Tender: Moderate Discharge: None Erythema: None Past Medical History PAST MEDICAL HISTORY: DM, Liver Surgical History: Hernia Repair Family History Family History: Reviewed,noncontributory to illness, Unobtainable Social History Smoker: Cigarettes, Less Than 1 Pack/Day Alcohol: Sober Drugs: Denies Drug Use Lives In: Home All Other Systems: Reviewed and Negative (Per HPI) Physical Exam General Appearance: No Apparent Distress, Normal HEENT: Normal ENT Inspection, Pharynx Normal, TMs Normal Neck: Full Range of Motion, Non-Tender, Normal, Normal Inspection Respiratory: Chest Non-Tender, Lungs Clear, No Accessory Muscle Use, No Respiratory Distress, Normal Breath Sounds Cardiovascular: No Murmur, No Gallop, Regular Rate/Rhythm Breast Exam: Deferred Gastrointestinal: No Organomegaly, Non Tender, No Pulsatile Mass, Normal Bowel Sounds, Soft Genitalia: Deferred Pelvic: Deferred Rectal: Deferred Extremities: No calf tenderness, Normal capillary refill, Normal inspection, Normal range of motion, Non-tender, No pedal edema Musculoskeletal : Apperance: Normal Neurologic: Alert, No Motor Deficits, Normal Affect, Normal Mood, No Sensory Deficits Cerebellar Function: Normal Reflexes: Normal Skin: Dry, Normal Color, Warm Lymphatic: No Adenopathy Was a procedure done? Was a procedure done?: Yes Sedation Sedation?: No Laceration Repair : Location ring finger Length 4 Anesthetic: Lidocaine, Without epi Laceration Repair Prep: Saline, Betadine, by Irrigation Laceration Repair Wound Comple: epidermis/dermis repair, debridement, scar revision Laceration Repair: Number of sutures (8), Size (5-0), Simple Informed consent obtained: Yes Risks, benefits, and alternati: Yes Differential diagnosis Generic Laceration: Laceration X-Ray, Labs, Meds, VS Vital Signs Date Time Temp Pulse Resp B/P (MAP) Pulse Ox O2 Delivery O2 Flow Rate FiO2 06/27/24 07:58 81 18 96 Room Air 06/27/24 07:58 97.8 81 18 109/74 (86) 96 97.8 06/27/24 06:25 97.8 81 18 109/74 (86) 96 X-Ray, Labs, Meds, VS Comment Wound revision The skin edges of the laceration were infiltrated with 1% lidocaine The skin surrounding the laceration was scrubbed with Betadine soaked sterile gauze The laceration was irrigated under high-pressure with a 60 mL syringe A total of 1L sterile water was used. Including diluted Betadine solution The laceration was prepped in sterile fashion with sterile drapes On examination under direct light, there was no foreign body seen The laceration was repaired in simple interrupted technique There was no continuing bleeding on repair. There were no complications related to repair Education and follow-up instructions provided Wound check in 2 days Return sooner for signs of infection such as fevers, increased pain, redness, green, yellow discharge, or any concerns Keep wound dry for 24 to 48 hours; dry dressing may be changed Protect from sunlight and keep area clean and dry. Use soap and water if it gets dirty High risk of possible scarring and education provided on ways to minimize scarring after wound heals Also provided education on possible complications post procedure including wound dehiscence, infection, etc. Time of 1ST Reevaluation: 08:45 Reevaluation 1ST: Improved Patient Education/Counseling: Diagnosis, Treatment Family Education/Counseling: Diagnosis, Treatment Departure 1 Departure Time of Disposition: 08:48 Impression: Primary Impression: Finger laceration Qualified Codes: S61.214A - Laceration without foreign body of right ring finger without damage to nail, initial encounter Disposition: HOME / SELF CARE / HOMELESS Condition: Fair e-Prescriptions Sulfamethoxazole W/Trimethopri (Bactrim Ds Tablet) 1 Tab Tb 1 TAB PO BID for 7 Days, #14 TAB 0 Refills Prov: SASHA HERNANDEZ NP 06/27/24 Critical Care Note Critical Care Time?: No Stability Stability form required: No Heart Score Heart Score: Heart Score Response (Comments) Value History N/A 0 EKG N/A 0 Age N/A 0 Risk Factors N/A 0 Troponin N/A 0 Total 0 SASHA HERNANDEZ NP Jun 27, 2024 08:49
[2024-06-27] MEDS: NEOMYCIN-BACITRACIN-POLYM UNITDOSE PKG TOP OINT TOP ONE (08:51)
== END 2024-06-27 08:55 | disposition home or self-care (01) ==
LOC: ER 06:24
DX: S61.214A Laceration without foreign body of right ring finger without damage to nail, initial encounter (principal); E11.9 Type 2 diabetes mellitus without complications; I10 Essential (primary) hypertension; F17.210 Nicotine dependence, cigarettes, uncomplicated; Z79.899 Other long term (current) drug therapy; Z98.890 Other specified postprocedural states; X58.XXXA Exposure to other specified factors, initial encounter; Y93.89 Activity, other specified; Y92.89 Other specified places as the place of occurrence of the external cause; Y99.8 Other external cause status
CPT/HCPCS: 12002; 99283; J2003

== ENCOUNTER 2024-07-13 11:13 | Emergency (ER) | payer BC ==
[~2024-07-13] VITALS: Ht 167.6 cm; Wt 101.6 kg
[2024-07-13 11:25] VITALS: BP 129/82; PULSE 73; RESP 18; TEMP 97.9; O2SAT 94
--- NOTE | 2024-07-13 11:49 | ED.PDOC ---
History of Present Illness HPI Comments A 79 YEAR OLD MALE PRESENTS TO THE ED WITH COMPLAINT OF SUTURE REMOVAL. PATIENT STATES HE HAD SUTURES PLACED ON HIS RIGHT 4TH FINGER 16 DAYS AGO AND IS HERE IN THE ED TODAY TO HAVE THEM REMOVED. PATIENT DENIES FEVER, CHILLS, SHORTNESS OF BREATH, CHEST PAIN, ABDOMINAL PAIN, NAUSEA, VOMITING, HEADACHE, OR OTHER COMPLAINTS. NO OTHER SYMPTOMS OR MODIFYING FACTORS AT THIS TIME. PATIENT IS ALERT, ORIENTED X 4, AND HAS STEADY GAIT. Chief Complaint: Suture Removal Time Seen by MD: 11:16 Primary Care Provider: unknown Reviewed Notes: Nurses Notes, Medications, Allergies Allergies: Coded Allergies: NO KNOWN ALLERGIES (Unverified , 04/12/16) Home Meds Active Scripts Sulfamethoxazole W/Trimethopri (Bactrim Ds Tablet) 1 Tab Tb, 1 TAB PO BID for 7 Days, #14 TAB 0 Refills Prov:SASHA HERNANDEZ LABEL PRINTING MACHINIST 06/27/24 Acetaminophen (Acetaminophen) 500 Mg Tab, 500 MG PO Q4HP PRN, #30 TAB Prov:BRIAN MORALES PAC 06/15/24 Bacitracin Base (Bacitracin) 500 Unit/Gm Oin, 500 UNIT TOP DAILY, #30 GM Prov:BRIAN MORALES PAC 06/15/24 Sulfamethoxazole W/Trimethopri (Bactrim Ds Tablet) 1 Tab Tb, 1 TAB PO BID for 10 Days, #20 TAB Prov:BRIAN MORALES PAC 06/15/24 Cephalexin Monohydrate (Cephalexin) 500 Mg Tab, 1 TAB PO QID, #40 TAB Prov:JORGE DYER MD 05/26/24 Metformin Hydrochloride (Metformin Hcl) 1,000 Mg Tab, 1 TAB PO BID, #60 TAB Prov:ALMA GRAY MD 06/18/19 Reported Medications Tacrolimus (ASTAGRAF XL) 1 Mg Cap, 2 MG PO BID, CAP 07/15/18 Bumetanide (Bumetanide) 1 Mg Tab, 1 MG PO DAILY for 30 Days, MG 07/15/18 Cholecalciferol (VITAMIN D3) 5,000 Unit Cap, 5000 UNIT PO DAILY, CAP 07/15/18 Multiple Vitamin (Multi Vitamin Daily) 1 Tab Tab, 1 TAB PO DAILY , TAB 07/15/18 Specialty Vitamins Products (Mg-Plus Protein) Protein Tab 07/15/18 Senna (EVAC-U-GEN) 8.6 Mg Tab 07/15/18 Information Source: Patient Mode of Arrival: Ambulatory Severity: None Timing: Weeks Duration: Since onset Medication Refill: For: Other (SUTURE REMOVAL) Past Medical History PAST MEDICAL HISTORY: DM, Liver Surgical History: Hernia Repair Family History Family History: Reviewed,noncontributory to illness Social History Smoker: Cigarettes, Less Than 1 Pack/Day Alcohol: Sober Drugs: Denies Drug Use Lives In: Home Constitutional: denies: chills, diaphoresis, fatigue, fever, malaise, sweats, weakness, others EENTM: denies: blurred vision, double vision, ear bleeding, ear discharge, ear drainage, ear pain, ear ringing, eye pain, eye redness, hearing loss, mouth pain, mouth swelling, nasal discharge, nose bleeding, nose congestion, nose pain, photophobia, tearing, throat pain, throat swelling, voice changes, others Respiratory: denies: cough, hemoptysis, orthopnea, SOB at rest, shortness of breath, SOB with excertion, stridor, wheezing, others Cardiovascular: denies: chest pain, dizzy spells, diaphoresis, Dyspnea on exertion, edema, irregular heart beat, left arm pain, lightheadedness, palpitations, PND, syncope, others Gastrointestinal: denies: abdomen distended, abdominal pain, blood streaked bowels, constipated, diarrhea, dysphagia, difficulty swallowing, hematemesis, melena, nausea, poor appetite, poor fluid intake, rectal bleeding, rectal pain, vomiting, others Genitourinary: denies: burning, dysuria, flank pain, frequency, hematuria, incontinence, penile discharge, penile sore, pain, testicle pain, testicle sw elling, urgency, others Neurological: denies: dizziness, fainting, headache, left sided numbness, left sided weakness, numbness, paresthesia, pre-existing deficit, right sided numbness, right sided weakness, seizure, speech problems, tingling, tremors, weakness, others Musculoskeletal: denies: back pain, gout, joint pain, joint swelling, muscle pain, muscle stiffness, neck pain, others Integumetry: reports: laceration (RIGHT 4TH FINGER REPAIRED. ); denies: bruises, change in color, change in hair/nails, dryness, lesions, lumps, rash, wounds, others Allergic/Immunocompromised: denies: Difficulty Healing, Frequent Infections, Hives, Itching, others Hematologic/Lymphatic: denies: anemia, blood clots, easy bleeding, easy bruising, swollen glands, others Endocrine: denies: excessive hunger, excessive sweating, excessive thirst, excessive urination, flushing, intolerance to cold, intolerance to heat, unexplained weight gain, unexplained weight loss, others Psychiatric: denies: anxiety, bipolar disorder, depression, hopeless, panic disorder, schizophrenia, sleepless, suicidal, others All Other Systems: Reviewed and Negative Physical Exam General Appearance: No Apparent Distress, Normal HEENT: Normal ENT Inspection, PERRL/EOMI, Pharynx Normal, TMs Normal Neck: Full Range of Motion, Non-Tender, Normal, Normal Inspection Respiratory: Chest Non-Tender, Lungs Clear, No Accessory Muscle Use, No Respiratory Distress, Normal Breath Sounds Cardiovascular: No Edema, No JVD, No Murmur, No Gallop, Normal Peripheral Pulses, Regular Rate/Rhythm Breast Exam: Deferred Gastrointestinal: No Organomegaly, Non Tender, No Pulsatile Mass, Normal Bowel Sounds, Soft Genitalia: Deferred Pelvic: Deferred Rectal: Deferred Extremities: No calf tenderness, Normal capillary refill, Normal inspection, Normal range of motion, Non-tender, No pedal edema Musculoskeletal : Apperance: Normal Neurologic: Alert, network solutions architect II-XII nml as Tested, No Motor Deficits, Normal Affect, Normal Mood, No Sensory Deficits Cerebellar Function: Normal Reflexes: Normal Skin: Dry, Lacerations (RIGHT 4TH FINGER LACERATION REPAIRED, HEALED, NO REDNESS AND SWELLING. ), Normal Color, Warm Peripheral Pulses: 2+ carotid (R), 2+ carotid (L), 2+ Radial (R), 2+ Radial (L) Lymphatic: No Adenopathy Was a procedure done? Was a procedure done?: No Differential Dx Considerations may include: SUTURE REMOVAL, WOUND RECHECK, WOUND INFECTION X-Ray, Labs, Meds, VS Vital Signs Date Time Temp Pulse Resp B/P (MAP) Pulse Ox O2 Delivery O2 Flow Rate FiO2 07/13/24 11:25 97.9 73 18 129/82 (98) 94 97.9 07/13/24 11:25 97.9 73 18 129/82 (98) 94 97.9 X-Ray, Labs, Meds, VS Comment EXTERNAL MEDICAL RECORDS REVIEWED: [NONE] INDEPENDENT HISTORIANS: [NONE] SOCIAL DETERMINANTS OF HEALTH: [NONE] LABS ORDERED: NONE REVIEWED AND INTERPRETED RESULTS: NONE IMAGING ORDERED: NONE TREATMENTS ORDERED: SUTURE REMOVAL PROCEDURES PERFORMED: NONE CRITICAL CARE TIME: NONE I HAVE DISCUSSED THE PATIENT WITH THE ATTENDING PHYSICIAN DR. DYER AND HE AGREES WITH THE PATIENT'S PLAN OF CARE AND DISPOSITION. BASED ON HISTORY OF PRESENT ILLNESS, AND PHYSICAL EXAM, PATIENT WILL BE DISCHARGED HOME. SHARED DECISION MAKING: PATIENT INSTRUCTED TO FOLLOW UP WITH PRIMARY CARE PROVIDER IN 1-2 DAYS FOR RE-EVALUATION OF SYMPTOMS. PATIENT VERBALIZES UNDERSTANDING TO RETURN TO ED FOR NEW OR WORSENING SYMPTOMS OR IF FOLLOW UP WITH PCP CANNOT BE OBTAINED. PATIENT FEELS COMFORTABLE GOING HOME AT THIS TIME. ALL QUESTIONS ADDRESSED AT TIME OF DISCHARGE. Time of 1ST Reevaluation: 12:00 Reevaluation 1ST: Improved Patient Education/Counseling: Diagnosis, Treatment, Need For Follow Up Family Education/Counseling: Diagnosis, Treatment, Need For Follow Up Medical Screening: No EMC Exist At This Time Departure 1 Departure Time of Disposition: 12:00 Impression: Primary Impression: Encounter for removal of sutures Disposition: 01 HOME / SELF CARE / HOMELESS Condition: Stable Additional Instructions: FOLLOW-UP WITH PCP IN 1 TO 2 DAYS. RETURN TO ED FOR ANY NEW OR WORSENING SYMPTOMS. Discharged With: Self Critical Care Note Critical Care Time?: No Stability Stability form required: No I personally scribed for ALEC VELASCO ([email or web address]) on 07/13/24 at 11:49. Electronically submitted by David Byrd ([email or web address]). ALEC VELASCO Jul 13, 2024 11:49
== END 2024-07-13 11:59 | disposition home or self-care (01) ==
LOC: ER 11:13
DX: S61.214D Laceration without foreign body of right ring finger without damage to nail, subsequent encounter (principal); E11.9 Type 2 diabetes mellitus without complications; F17.210 Nicotine dependence, cigarettes, uncomplicated; Z98.890 Other specified postprocedural states; Z79.899 Other long term (current) drug therapy; Z79.84 Long term (current) use of oral hypoglycemic drugs